=== PATIENT | male | born 1930 | race Caucasian/White ===

== ENCOUNTER 2016-12-26 11:48 | Inpatient (IN) | payer OTHER ==
[~2016-12-26] VITALS: Ht 170.2 cm; Wt 65.0 kg
[~2016-12-26 11:48] MED LIST: CHOL2000 PO; CIPR250S2 PO; DILT180C9 PO; DUTA0.5C PO; GLYB5TAB3 PO; INSU100C3 SQ; INSU100C5 SQ; LISI10TA2 PO; MTF1000T PO; PIOG30TA19 PO; SITA100T8 PO
[2016-12-26] MEDS ORDERED: SOD CHLORIDE 0.9% 500 ML IV STA (12:06)
[2016-12-26] MEDS ORDERED: ONDANSETRON 4 MG INJ IV ONE (12:30)
[2016-12-26] MEDS ORDERED: morphine 2 MG INJ IV ONE (12:30)
[2016-12-26 12:31] LABS: BASOPHIL # 0.1 10^3/ul (0.0-0.1); BASOPHILS % 0.5 % (0.0-2.0); EOSINOPHILS % 0.3 % (0.0-7.0); HEMATOCRIT 40.3 % (42.0-52.0); HEMOGLOBIN 13.4 g/dl (14.0-18.0); LYMPHOCYTES # 1.3 10^3/ul (0.8-2.9); MEAN CORPUSCULAR HEMOGLOBIN 30.3 pg (29.0-33.0); MEAN CORPUSCULAR HGB CONC 33.3 g/dl (32.0-37.0); MEAN CORPUSCULAR VOLUME 91.2 fl (82.0-101.0); MEAN PLATELET VOLUME 10.3 fl (7.4-10.4); MONOCYTE # 0.7 10^3/ul (0.3-0.9); MONOCYTES % 6.5 % (0.0-11.0); NEUTROPHIL # 8.1 10^3/ul (1.6-7.5); NEUTROPHILS % 79.2 % (39.0-77.0); PLATELET COUNT 156 10^3/UL (140-415); RED BLOOD COUNT 4.42 10^6/ul (4.70-6.10); RED CELL DISTRIBUTION WIDTH 12.7 % (11.5-14.5); WHITE BLOOD COUNT 10.2 10^3/ul (4.8-10.8)
[2016-12-26 12:49] LABS: INR 1.14; PROTIME 14.6 Sec (12.2-14.2); PT RATIO 1.1
[2016-12-26 12:50] LABS: PARTIAL THROMBOPLASTIN TIME 30.6 Sec (25.0-35.0)
[2016-12-26 12:51] LABS: ANION GAP 14 (8-16); BLOOD UREA NITROGEN 30 mg/dl (7-20); CARBON DIOXIDE 28 mmol/L (21-31); CHLORIDE 106 mmol/L (97-110); CREATININE 1.43 mg/dl (0.61-1.24); GLUCOSE 167 mg/dl (70-220); POTASSIUM 4.1 mmol/L (3.5-5.1); SODIUM 144 mmol/L (135-144)
[2016-12-26 13:03] LABS: TROPONIN-I < 0.012 ng/ml (0.00-0.12)
--- NOTE | 2016-12-26 13:09 | ERD ---
ER Documentation Chief Complaint Chief Complaint BIB [facility] FOR GROUND LEVEL FALL C/O LEFT SHOULDER PAIN. HPI This is an 86-year-old male history of mild dementia who presents via EMS for ground-level fall. The patient is describing left shoulder and left knee pain. However, the patient cannot adequately explain how he fell. The patient is otherwise conversive and can localize. He denies any head trauma, no neck pain , no prodrome of chest pain or shortness of breath but again cannot describe the events surrounding the fall. No family available upon arrival. Remainder of HPI is limited. He does describe the shoulder pain is moderate to severe and worse with any movement. ROS All systems reviewed and are negative except as per history of present illness. Medications Home Meds Reported Medications Insulin Glargine,Hum.rec.anlog (Lantus) 100 U/Ml Cartridge, 10 SQ HS 11/15/11 Insulin Aspart (Novolog) 100 U/Ml Cartridge, 6 SQ BID 11/15/11 Ciprofloxacin (Cipro Susp) 250 Mg/5 Ml Zoey.mc.rec, 250 MG PO BID 11/07/11 Glyburide* (Glyburide*) 5 Mg Tablet, 5 MG PO BID 11/07/11 Dutasteride* (Avodart*) 0.5 Mg Capsule, 0.5 MG PO DAILY 11/07/11 Pioglitazone Hcl* (Actos*) 30 Mg Tablet, 30 MG PO DAILY 11/07/11 Metformin* (Glucophage*) 1,000 Mg Tablet, 1000 MG PO BID 11/07/11 Cholecalciferol* (Vitamin D3*) 2,000 Unit Cap, 2000 UNIT PO DAILY 11/07/11 Sitagliptin* (Januvia*) 100 Mg Tablet, 100 MG PO DAILY 11/07/11 Lisinopril* (Lisinopril*) 10 Mg Tablet, 10 MG PO DAILY 11/07/11 Diltiazem Hcl (Diltiazem Er) 180 Mg Capsule.cr, 180 MG PO DAILY 11/07/11 Allergies Allergies: Coded Allergies: No Known Drug Allergy (Verified Allergy, Unknown, 11/17/11) PMhx/Soc History of Surgery: Yes (PACEMAKER INSERTION) Anesthesia Reaction: No Hx Neurological Disorder: Yes (DEMENTIA) Hx Respiratory Disorders: No Hx Cardiac Disorders: Yes (HTN) Hx Psychiatric Problems: No Hx Miscellaneous Medical Probl: Yes (B LE ULCERS,PAD,DM,ARTERIAL HTN,VIT. D DEFICIENT,BPH,HIATAL HERNIA) Hx Alcohol Use: No Hx Substance Use: No Hx Tobacco Use: No FmHx Family History: No diabetes Physical Exam Vitals Vital Signs Date Time Temp Pulse Resp B/P Pulse Ox O2 Delivery O2 Flow Rate FiO2 12/26/16 12:34 66 17 170/80 94 Nasal Cannula 2.0 12/26/16 11:52 98.3 58 16 179/84 99 Physical Exam Airway is intact Bilateral breath sounds Strong distal pulses No obvious deficits General: Well developed, well nourished, no acute distress Head: Normocephalic, atraumatic Eyes: Pupils equally reactive, EOM intact ENT: Moist mucous membranes Neck: Supple, no lymphadenopathy, No midline tenderness, deformities, step-offs to the cervical spine, full active and passive range of motion without midline pain. Respiratory: Lungs clear bilaterally, no distress, no chest wall tenderness, no crepitus Cardiovascular: RRR, no murmurs, rubs, or gallops Abdominal: Soft, non-tender, non-distended, no peritoneal signs, pelvis is stable : Deferred MSK: The patient has soft tissue tenderness of the proximal humerus of the left upper extremity with limited range of motion secondary to pain, no tenderness at the elbow or wrist. The patient seems to have baseline dysfunction of the left hand that the patient states is unchanged. Additionally the patient has a small contusion noted to the left knee with full active and passive range of motion. The patient seems to have some discomfort with internal and external rotation of the left lower extremity. Otherwise 2+ dorsalis pedis and posterior tibial pulses., no midline tenderness deformities or step-offs to the thoracolumbar spine Neurologic: Alert and oriented, moving all extremities, normal speech, no focal weakness, no cerebellar signs Skin: No ecchymoses or bruising to the chest or abdomen Psych: Normal mood Result Diagram: 12/26/16 1224 12/26/16 1224 Results 24 hrs Laboratory Tests Test 12/26/16 12:24 White Blood Count 10.210^3/ul Red Blood Count 4.4210^6/ul Hemoglobin 13.4g/dl Hematocrit 40.3% Mean Corpuscular Volume 91.2fl Mean Corpuscular Hemoglobin 30.3pg Mean Corpuscular Hemoglobin Concent 33.3g/dl Red Cell Distribution Width 12.7% Platelet Count 50036^3/UL Mean Platelet Volume 10.3fl Neutrophils % 79.2% Lymphocytes % 13.0% Monocytes % 6.5% Eosinophils % 0.3% Basophils % 0.5% Nucleated Red Blood Cells % 0.0/100WBC Neutrophils # 8.110^3/ul Lymphocytes # 1.310^3/ul Monocytes # 0.710^3/ul Eosinophils # 0.010^3/ul Basophils # 0.110^3/ul Nucleated Red Blood Cells # 0.010^3/ul Prothrombin Time 14.6Sec Prothrombin Time Ratio 1.1 INR International Normalized Ratio 1.14 Activated Partial Thromboplast Time 30.6Sec Sodium Level 144mmol/L Potassium Level 4.1mmol/L Chloride Level 106mmol/L Carbon Dioxide Level 28mmol/L Anion Gap 14 Blood Urea Nitrogen 30mg/dl Creatinine 1.43mg/dl Glucose Level 167mg/dl Calcium Level 9.0mg/dl Troponin I < 0.012ng/ml Current Medications Medications (Trade) Dose Ordered Sig/Cata Route PRN Reason Start Time Stop Time Status Last Admin Dose Admin Sodium Chloride (NS) 500 ml @ 500 mls/hr Q1H STAT IV 12/26/16 12:06 12/26/16 13:05 DC 12/26/16 12:27 Morphine Sulfate (morphine) 2 mg ONCE ONCE IV 12/26/16 12:30 12/26/16 12:31 DC 12/26/16 12:27 Ondansetron HCl (Zofran Inj) 4 mg ONCE ONCE IV 12/26/16 12:30 12/26/16 12:31 DC 12/26/16 12:35 Ondansetron HCl (Zofran Inj) 4 mg ER BRIDGE PRN IV NAUSEA AND/OR VOMITING 12/26/16 14:00 12/27/16 13:59 Acetaminophen (Tylenol Tab) 650 mg ER BRIDGE PRN PO MILD PAIN/FEVER 12/26/16 14:00 12/27/16 13:59 Procedures/MDM EKG, MONITORS, & DIAGNOSTIC IMAGING: EKG: I reviewed and interpreted a 12-lead EKG. Rhythm: Normal sinus rhythm Ectopy: None Intervals: No abnormalities ST segments: No elevations or depressions T waves: No contiguous inversions Chest x-ray: I reviewed and interpreted a 1 view of the chest Mediastinum: No enlargement Cardiac silhouette: No cardiomegaly Airspace: Clear lung contreras bilaterally without evidence of pneumothorax Bones: No evidence of fracture X-ray pelvis: I reviewed and interpreted 1 view of the pelvis, there is no evidence of an acetabular fracture without any other evidence of acute fracture dislocation or subluxations X-ray left hip: I reviewed and interpreted multiple views of the x-ray Bones: Left acetabular fracture as described above Soft tissue: No evidence of foreign body X-ray left knee: I reviewed and interpreted multiple views of the x-ray Bones: No evidence of acute fracture dislocation or subluxation Soft tissue: No evidence of foreign body CT brain: Indication for advanced imaging: Elderly male with syncopal episode versus fall , cannot rule out intracranial hemorrhage. Summary of radiologist interpretation: IMPRESSION: 1. No evidence of acute intracranial pathology. 2. Severe generalized cerebral volume loss. 3. Advanced periventricular and subcortical white matter hypodensities are nonspecific but likely reflect chronic microvascular ischemic change. CT pelvis: Indication for advanced imaging: Better evaluation of potential left acetabular fracture Summary of radiologist interpretation: Pending report at this time Procedure: Splint Application Note: Splint type: Left upper extremity sling Extremity: Upper extremity Indication: Proximal humerus fracture The patient was consented at bedside prior to splint application and states understanding of risks, benefits, and alternatives. The patient was neurovascularly intact prior to and status post application of the splint. The patient tolerated the procedure well and there were no complications. LAB INTERPRETATION: Mild renal insufficiency MEDICAL DECISION MAKING: This is an elderly male with mild dementia who cannot describe the events around his fall versus syncope. A workup was initiated directed at diagnosis of potential syncopal episode. The patient is unsure if he hit his head but default imaging of CT of the brain would be appropriate. The patient can localize otherwise. The patient does not meet high-risk criteria and based on NEXUS cervical spine criteria there is no indication for cervical spine imaging at this time. The patient is having tenderness to the left shoulder and left knee. Concern for proximal humerus fracture, left knee contusion. The patient also has some pain with internal and external rotation of the hip, concern for possible hip fracture. Imaging directed at these structures. ER COURSE: Pain medicine provided. The patient remains hemodynamically stable. His family was updated on diagnosis of proximal humerus fracture and left acetabular fracture. The orthopedic surgeon product safety consultant was notified. The patient's pain is well controlled. Patient given gentle fluids. I kept the patient and/or family informed of laboratory and diagnostic imaging results throughout the emergency room course. DISPOSITION PLAN: Telemetry admission to rule out syncope CONSULTATION: Accepting care team and consultations: I discussed the current laboratory data, diagnostic imaging and emergency care provided. Admitting team: Dr. Whitt Admitting team indication: Insurance directed Consulting services: Orthopedic surgeon Dr. Shasta Elias Diagnosis: Primary Impression: Syncope Syncope type: unspecified Qualified Code: R55 - Syncope, unspecified syncope type Additional Impressions: Closed fracture of left proximal humerus Encounter type: initial encounter Fracture morphology: unspecified fracture morphology Qualified Code: S42.202A - Closed fracture of proximal end of left humerus, unspecified fracture morphology, initial encounter Closed left acetabular fracture Encounter type: initial encounter Sublocation of acetabulum: unspecified portion of acetabulum Fracture alignment: displaced Qualified Code: S32.402A - Closed displaced fracture of left acetabulum, unspecified portion of acetabulum, initial encounter Acute renal insufficiency Condition: Stable LAUREN HAHN MD Dec 26, 2016 13:09
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
--- NOTE | 2016-12-26 13:10 | RADRPT ---
PROCEDURE: XR Left Shoulder. CLINICAL INDICATION: Left shoulder pain. TECHNIQUE: Three views. Frontal internal rotation, frontal external rotation, and scapular Y-view . COMPARISON: No prior study is available for comparison. FINDINGS: There is a possible acute mildly displaced fracture through the surgical neck and greater tuberosity of the left humerus. There is no other fracture. There is no dislocation. The soft tissues are normal. Articular surfaces are intact. There is no lytic or blastic lesion. A permanent pacemaker is noted. IMPRESSION: 1. Possible fracture through the proximal left humerus. Correlation with CT scan advised. 2. Permanent pacemaker. RPTAT: QQ .Sai Okeefe MD, MD Date Time Electronically viewed and signed by .Sai Okeefe MD, on 12/26/2016 13:10 .R/
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
[2016-12-26] MEDS ORDERED: ONDANSETRON 4 MG INJ IV PRN (14:00)
[2016-12-26] MEDS ORDERED: ACETAMINOPHEN 325 MG TAB PO PRN ×2 (14:00→15:00)
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
--- NOTE | 2016-12-26 14:28 | RADRPT ---
PROCEDURE: CT pelvis without contrast. CLINICAL INDICATION: Acetabular fracture TECHNIQUE: CT scan of the pelvis without contrast was performed. The patient was scanned without intravenous contrast. Coronal and sagittal reformatted images were obtained from the axial source i mages. Use of iterative reconstruction technique was employed. Images were reviewed on a high-resolu tion PACS workstation. images. The calculated radiation dose measures 324.[address] DI measures 9.65 mGy. One or more of the following dose reduction techniques were used: - Automated exposure control. - Adjustment of the mA and/or kV according to patient size . - Use of iterative reconstruction technique. Images were reviewed on a high-resolution PACS workstation COMPARISON: None. FINDINGS: CT pelvis: Osseous structures: There is a comminuted and minimally displaced fracture involving the left anterior hong and acetabu lar columns there is also a mildly displaced fracture of the posterior wall and posterior column. Th ere is involvement of the medial acetabular wall as well and articular surface involvement. Displace ment is minimal. There are additional fractures involving the left anterior pubic ramus which is com minuted minimally displaced there is also fracture of the takeoff of the left superior pubic ramus n ear the acetabulum. The right hip joint is grossly preserved. No additional fractures are identified . Left proximal femur is maintained as well. Mild to moderate bilateral hip arthrosis is present. Soft tissues: There is a fat containing left inguinal hernia. Atherosclerotic vascular calcifications are present. Multiple densities are seen within the left kid catarina which appears mildly atrophic. There may be vascular, although partially assessed. The small bowel loops situated within the pelvis are unremarkable. The pelvic organs are normal. T he pelvic sidewalls and inguinal regions are clear. The sigmoid colon and rectum are remarkable for sigmoid diverticulosis. No mass, lymphadenopathy, or free fluid is seen. Calcific densities seen w ithin the descending colon and No acute inflammation is seen. The surrounding osseous structures are remarkable for degenerative spondylosis of the spine. No ost eolytic or osteoblastic lesion is detected. IMPRESSION: 1. Comminuted, nondisplaced fractures involving the left anterior, posterior and medial hong, as we ll as, the anterior and posterior columns. 2. No evidence for a left proximal femoral fracture. 3. Comminuted, nondisplaced fractures of the left superior and inferior pubic rami. 3. Atherosclerotic vascular calcifications. 4. Decreased bone mineral density. RPTAT: UU .Ben Charles MD, MD Date Time Electronically viewed and signed by .Ben Charles MD, MD on 12/26/2016 14:28 .d/
[2016-12-26] MEDS: SOD CHLORIDE 0.9% 1,000 ML IV SCH (14:39)
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
[2016-12-26] MEDS ORDERED: GLUCOSE GEL 15 GRAM TUBE PO PRN ×2 (15:00)
[2016-12-26] MEDS ORDERED: hydrALAzine 20 MG INJ IV PRN (15:00)
[2016-12-26] MEDS ORDERED: DEXTROSE 50% 50 ML SYRINGE IV PRN ×2 (15:00)
[2016-12-26] MEDS ORDERED: DOCUSATE SODIUM 100 MG CAP PO PRN (15:00)
[2016-12-26] MEDS ORDERED: GLUCAGON 1 MG INJ IM PRN (15:00)
[2016-12-26] MEDS ORDERED: NACL 0.9% 3 ML SYG IV SCH (15:00)
[2016-12-26] MEDS ORDERED: GLUCOSE GEL 15 GRAM TUBE BUCCAL PRN (15:00)
[2016-12-26] MEDS: INSULIN ASPART [NOVOLOG] 3 ML PEN SC SCH ×2 (18:54→21:00)
[2016-12-26] MEDS: FAMOTIDINE 20 MG TAB PO SCH (18:54)
[2016-12-26] MEDS: morphine 2 MG INJ IV PRN (18:55)
[2016-12-26] MEDS: ONDANSETRON 4 MG INJ IV PRN (18:55)
[2016-12-26 18:56] VITALS: PULSE 73
[2016-12-26 19:00] VITALS: Ht 170.2 cm; Wt 65.0 kg
[2016-12-26 19:08] VITALS: BP 159/74; PULSE 65; RESP 17
[2016-12-26 20:14] VITALS: PULSE 66
[2016-12-26 20:33] VITALS: BP 153/71; RESP 19
[2016-12-26] MEDS: INSULIN GLARGINE [LANtus] 3 ML PEN SC SCH (21:24)
[2016-12-26] MEDS: HEPARIN 5,000 UNIT/0.5 ML VIAL SC SCH (21:24)
[2016-12-27] VITALS (11 sets, daily range): BP systolic 115–135; BP diastolic 59–71; PULSE 60–74; RESP 15–18
[2016-12-27] MEDS: ACCU-CHEK XX SCH (02:00)
[2016-12-27] MEDS: SOD CHLORIDE 0.9% 1,000 ML IV SCH ×2 (03:59→13:07)
[2016-12-27] MEDS: HEPARIN 5,000 UNIT/0.5 ML VIAL SC SCH ×3 (05:20→22:08)
[2016-12-27 07:39] LABS: BASOPHILS % 0.5 % (0.0-2.0); EOSINOPHILS # 0.3 10^3/ul (0.0-0.5); EOSINOPHILS % 3.9 % (0.0-7.0); HEMATOCRIT 36.8 % (42.0-52.0); HEMOGLOBIN 11.8 g/dl (14.0-18.0); LYMPHOCYTES # 1.5 10^3/ul (0.8-2.9); LYMPHOCYTES % 20.6 % (15.0-51.0); MEAN CORPUSCULAR HEMOGLOBIN 29.9 pg (29.0-33.0); MEAN CORPUSCULAR HGB CONC 32.1 g/dl (32.0-37.0); MEAN CORPUSCULAR VOLUME 93.2 fl (82.0-101.0); MEAN PLATELET VOLUME 10.6 fl (7.4-10.4); MONOCYTE # 0.4 10^3/ul (0.3-0.9); MONOCYTES % 5.9 % (0.0-11.0); NEUTROPHIL # 5.1 10^3/ul (1.6-7.5); NEUTROPHILS % 68.7 % (39.0-77.0); PLATELET COUNT 145 10^3/UL (140-415); RED BLOOD COUNT 3.95 10^6/ul (4.70-6.10); WHITE BLOOD COUNT 7.5 10^3/ul (4.8-10.8)
[2016-12-27 07:58] LABS: CALCIUM 8.5 mg/dl (8.4-10.2); CREATININE 1.42 mg/dl (0.61-1.24); MAGNESIUM 1.8 mg/dl (1.7-2.5); POTASSIUM 4.4 mmol/L (3.5-5.1)
[2016-12-27] MEDS: INSULIN ASPART [NOVOLOG] 3 ML PEN SC SCH ×4 (08:00→22:07)
[2016-12-27] MEDS: CHOLECALCIFEROL 2,000 UNIT CAP PO SCH (09:17)
[2016-12-27] MEDS: FAMOTIDINE 20 MG TAB PO SCH (09:17)
[2016-12-27] MEDS: DILTIAZEM (CD) 180 MG CAP PO SCH (09:17)
[2016-12-27] MEDS: DUTASTERIDE 0.5 MG CAP PO SCH (09:17)
[2016-12-27] MEDS: morphine 2 MG INJ IV PRN (13:06)
[2016-12-27] MEDS: ONDANSETRON 4 MG INJ IV PRN (13:07)
--- NOTE | 2016-12-27 16:18 | PN ---
Date/Time of Note Date/Time of Note DATE: 12/27/16 TIME: 16:14 Assessment/Plan VTE Prophylaxis VTE Prophylaxis Intervention: heparin Lines/Catheters IV Catheter Type (from Nrs): Saline Lock Urinary Cath still in place: No Assessment/Plan Chief Complaint/Hosp Course 1. Acute left hip fracture s/p mechanical fall - CT scan of pelvis showed "comminuted and minimally displaced fracture involving the left anterior hong and acetabular columns there is also a mildly displaced fracture of the posterior wall and posterior column. There is involvement of the medial acetabular wall as well and articular surface involvement. Displacement is minimal. There are additional fractures involving the left anterior pubic ramus which is comminuted minimally displaced there is also fracture of the takeoff of the left superior pubic ramus near the acetabulum." - Ortho, Dr. Vegas, consulted from ED - Will await further recommendations from Ortho - will put on bedrest for now - Pain control 2. DM - hold hold PO medications - A1c ordered - ISS and accuchecks 3. h/o CVA with residual weakness - Once cleared by Ortho, will get PT/OT 4. GABBI vs GABBI on CKD - will hydrate and monitor renal function - If worsens, will consider Nephrology consultation - IVF 5. Left humeral fracture - Left arm in sling - Ortho on board 6. HTN - continue home medications - Hold lisinopril for now due to Cr 7. BPH - hold home medications 8. Diet - Carb control 9. GI ppx - Pepcid 10. DVT ppx - Heparin 11. Code status - DNR/DNI 12. Disposition -still pending ortho recs Problems: Subjective 24 Hr Interval Summary Free Text/Dictation patient has dementia, but does respond in greek Exam/Review of Systems Vital Signs Vitals Vital Signs Date Time Temp Pulse Resp B/P Pulse Ox O2 Delivery O2 Flow Rate FiO2 12/27/16 16:12 99.3 66 17 115/59 95 12/27/16 08:30 Nasal Cannula 2.0 Intake and Output 12/26/16 12/26/16 12/27/16 15:00 23:00 07:00 Intake Total 900 ml Balance 900 ml Exam Physical exam General: Patient is laying in bed and answers questions Mentation: Patient is alert and oriented to self Head: Normocephalic atraumatic Eyes: EOMI, pupils reactive to light Neck: Supple, nontender, midline Respiratory: Clear to auscultation bilaterally Cardiovascular: regular rate, no obvious murmurs Gastrointestinal: non-tender to palpation, bowel sounds heard. Neurological: Moves all extremities spontaneously, but limited to no movement in L side given pain. Results Result Diagram: 12/27/16 0611 12/27/16 0610 Results 24 hrs Laboratory Tests Test 12/26/16 18:37 12/26/16 21:12 12/27/16 06:10 12/27/16 06:11 Bedside Glucose 146 171 Sodium Level 144 Potassium Level 4.4 Chloride Level 107 Carbon Dioxide Level 31 Anion Gap 10 Blood Urea Nitrogen 23 H Creatinine 1.42 H Glucose Level 112 # Hemoglobin A1c 6.4 H Calcium Level 8.5 Magnesium Level 1.8 White Blood Count 7.5 # Red Blood Count 3.95 L Hemoglobin 11.8 L Hematocrit 36.8 L Mean Corpuscular Volume 93.2 Mean Corpuscular Hemoglobin 29.9 Mean Corpuscular Hemoglobin Concent 32.1 Red Cell Distribution Width 13.0 Platelet Count 145 Mean Platelet Volume 10.6 H Neutrophils % 68.7 Lymphocytes % 20.6 Monocytes % 5.9 Eosinophils % 3.9 Basophils % 0.5 Nucleated Red Blood Cells % 0.0 Neutrophils # 5.1 Lymphocytes # 1.5 Monocytes # 0.4 Eosinophils # 0.3 Basophils # 0.0 Nucleated Red Blood Cells # 0.0 Test 12/27/16 07:58 12/27/16 11:52 Bedside Glucose 112 142 Medications Medications Current Medications Cholecalciferol (Vitamin D) 2,000 unit DAILY PO Last administered on 12/27/16 09:17; Admin Dose 2,000 UNIT; Start 12/27/16 at 09:00 Diltiazem HCl (Cardizem Cd) 180 mg DAILY PO Last administered on 12/27/16 09: 17; Admin Dose 180 MG; Start 12/27/16 at 09:00 Dutasteride (Avodart) 0.5 mg DAILY PO Last administered on 12/27/16 09:17; Admin Dose 0.5 MG; Start 12/27/16 at 09:00 Insulin Glargine (Lantus) 10 unit HS SC Last administered on 12/26/16 21:24; Admin Dose 10 UNIT; Start 12/26/16 at 21:00 Miscellaneous Information 1 ea NOTE XX ; Start 12/26/16 at 15:00 Glucose (Glutose) 15 gm Q15M PRN PO DECREASED GLUCOSE; Start 12/26/16 at 15:00 Glucose (Glutose) 22.5 gm Q15M PRN PO DECREASED GLUCOSE; Start 12/26/16 at 15: 00 Dextrose (D50w Syringe) 25 ml Q15M PRN IV DECREASED GLUCOSE; Start 12/26/16 at 15:00 Dextrose (D50w Syringe) 50 ml Q15M PRN IV DECREASED GLUCOSE; Start 12/26/16 at 15:00 Glucagon (Glucagen) 1 mg Q15M PRN IM DECREASED GLUCOSE; Start 12/26/16 at 15:00 Glucose (Glutose) 15 gm Q15M PRN BUCCAL DECREASED GLUCOSE; Start 12/26/16 at 15 :00 Ondansetron HCl (Zofran Inj) 4 mg Q6H PRN IV NAUSEA AND/OR VOMITING Last administered on 12/27/16 13:07; Admin Dose 4 MG; Start 12/26/16 at 15:00 Acetaminophen (Tylenol Tab) 650 mg Q6H PRN PO PAIN LEVEL 1-3 OR FEVER; Start 12/26/16 at 15:00 Acetaminophen/ Hydrocodone Bitart ([place] (5/325)) 1 tab Q6H PRN PO PAIN LEVEL 4 -6; Start 12/26/16 at 15:00 Morphine Sulfate (morphine) 2 mg Q4H PRN IV PAIN LEVEL 7-10 Last administered on 12/27/16 13:06; Admin Dose 2 MG; Start 12/26/16 at 15:00 Docusate Sodium (Colace) 100 mg Q12H PRN PO CONSTIPATION; Start 12/26/16 at 15: 00 Magnesium Hydroxide (Milk Of Mag) 30 ml DAILY PRN PO CONSTIPATION; Start at 15:00 Famotidine (Pepcid) 20 mg DAILY PO Last administered on 12/27/16 09:17; Admin Dose 20 MG; Start 12/26/16 at 16:00 Heparin Sodium (Porcine) (Heparin (5000 Units/0.5 ml)) 5,000 unit Q8 SC Last administered on 12/27/16 13:08; Admin Dose 5,000 UNIT; Start 12/26/16 at 22:00 Hydralazine HCl (Apresoline) 10 mg Q6H PRN IV SBP >160; Start 12/26/16 at 15:00 Diagnostic Test (Pha) (Accu-Chek) 1 XX ; Start 12/27/16 at 02:00 CHANDRIKA NICHOLAS Dec 27, 2016 16:18
[2016-12-27] MEDS: INSULIN GLARGINE [LANtus] 3 ML PEN SC SCH (22:07)
[2016-12-28] VITALS (13 sets, daily range): BP systolic 120–138; BP diastolic 58–69; PULSE 59–70; RESP 15–20
[2016-12-28] MEDS: ACCU-CHEK XX SCH (02:44)
--- NOTE | 2016-12-28 04:16 | CONS ---
DATE OF ADMISSION: 12/26/2016 DATE OF CONSULTATION: 12/27/2016 HISTORY OF PRESENT ILLNESS: The patient is an 86-year-old male, who was admitted on December 26, 2016, when he was brought into the emergency room complaining of pain involving the left hip and left shoulder. He obviously had a ground level 4, which was not actually witnessed. He is usually ambulatory with a walker. However, 1 day after the fall, he was not able to carry out his usual ambulatory activities and he was complaining of increasing pain over the left hip and he was brought in. He has multiple medical problem including diabetes mellitus, dementia, history of CVA with residual left-sided weakness, history of congestive heart failure, and coronary heart disease with a pacemaker in. PHYSICAL EXAMINATION: GENERAL APPEARANCE: My examination revealed an 86-year-old male, who could not participate in the history taking and physical examination. EXTREMITIES: There was a mild swelling around the left shoulder with painful limit of motion. There seems to be weakness in the left-sided extremities. However, there were no signs of any other injuries than the painful swelling of the left shoulder. He was holding his left hip somewhat externally rotated and flexed and any attempted range of motion of the left hip was provoking considerable pain. There was no major neurovascular compromise of the then the weakness and painful limit of motion. IMAGING STUDIES: X-rays and CT scan of the pelvis were reviewed, and it revealed a presence of a pelvic fracture involving the left acetabulum and left superior-inferior pubic rami. Fractures were all within acceptable limits. The x-rays of the left shoulder revealed deformities involving humeral head, which probably is preexisting. However, there is a finding suggestive of possible surgical neck fracture of the left humerus, which is not displaced. DIAGNOSTIC IMPRESSION: 1. Pelvic fracture involving the left acetabulum and left superior and inferior pubic rami, in acceptable alignment. 2. Possible fracture of the surgical neck of the left humerus. RECOMMENDATIONS FOR MANAGEMENT: The treatment recommended is conservative and nonsurgical: 1. The left shoulder injury can be treated with immobilization in a sling for 4-5 weeks, followed by gradual mobilization. 2. For the treatment of pelvic fracture including left acetabulum and left pubic rami, the patient should be in bedrest with absolutely no weightbearing on the left lower extremity for 4-6 weeks by following the gradual mobilization. This patient probably needs to be placed in a custodial facility for bedrest and absolute no weightbearing on the left lower extremity for about 6 weeks. After the alf placement, he should be seen as an outpatient in the ortho office in 2 weeks with repeated x-rays of the shoulder and pelvis. Dictated By: In Lisa Vegas MD /ministerio/dunia /Document#: [id number]
[2016-12-28] MEDS: HEPARIN 5,000 UNIT/0.5 ML VIAL SC SCH ×3 (06:00→23:00)
[2016-12-28] MEDS: INSULIN ASPART [NOVOLOG] 3 ML PEN SC SCH ×4 (08:00→21:00)
[2016-12-28 08:53] LABS: BASOPHILS % 0.5 % (0.0-2.0); EOSINOPHILS # 0.4 10^3/ul (0.0-0.5); EOSINOPHILS % 4.7 % (0.0-7.0); HEMATOCRIT 36.2 % (42.0-52.0); HEMOGLOBIN 11.4 g/dl (14.0-18.0); LYMPHOCYTES # 1.4 10^3/ul (0.8-2.9); LYMPHOCYTES % 16.9 % (15.0-51.0); MEAN CORPUSCULAR HEMOGLOBIN 29.3 pg (29.0-33.0); MEAN CORPUSCULAR HGB CONC 31.5 g/dl (32.0-37.0); MEAN CORPUSCULAR VOLUME 93.1 fl (82.0-101.0); MEAN PLATELET VOLUME 10.4 fl (7.4-10.4); MONOCYTE # 0.7 10^3/ul (0.3-0.9); MONOCYTES % 8.9 % (0.0-11.0); NEUTROPHIL # 5.6 10^3/ul (1.6-7.5); NEUTROPHILS % 68.8 % (39.0-77.0); PLATELET COUNT 131 10^3/UL (140-415); RED BLOOD COUNT 3.89 10^6/ul (4.70-6.10); RED CELL DISTRIBUTION WIDTH 13.1 % (11.5-14.5); WHITE BLOOD COUNT 8.1 10^3/ul (4.8-10.8)
[2016-12-28] MEDS: DILTIAZEM (CD) 180 MG CAP PO SCH (09:23)
[2016-12-28] MEDS: FAMOTIDINE 20 MG TAB PO SCH (09:23)
[2016-12-28] MEDS: DUTASTERIDE 0.5 MG CAP PO SCH (09:23)
[2016-12-28] MEDS: CHOLECALCIFEROL 2,000 UNIT CAP PO SCH (09:23)
[2016-12-28 09:26] LABS: CALCIUM 7.4 mg/dl (8.4-10.2); CREATININE 1.43 mg/dl (0.61-1.24); MAGNESIUM 1.7 mg/dl (1.7-2.5); PHOSPHORUS 3.4 mg/dl (2.5-4.9); POTASSIUM 4.2 mmol/L (3.5-5.1)
[2016-12-28] MEDS ORDERED: POLYETHYLENE GLYCOL 17 GM PACKET PO PRN (10:30)
[2016-12-28] MEDS: BALSAM PERU/CASTOR OIL 60 GM TUBE TOP SCH ×2 (11:00→23:00)
--- NOTE | 2016-12-28 11:01 | RADRPT ---
PROCEDURE: Renal US. CLINICAL INDICATION: Acute kidney injury. TECHNIQUE: Multiple sonographic images of the kidneys and urinary bladder were obtained. The imag es were reviewed on a PACS workstation. COMPARISON: No prior studies are available for comparison. FINDINGS: The right kidney measures 10.7 x 5.5 x 4.4 cm. The left kidney measures 9.7 x 3.8 x 3.6 cm. There is no renal mass. There is mild bilateral hydronephrosis. There are multiple bilateral renal calculi with the largest on the right measuring 0.6 cm and the la rgest on the left measuring 1.1 cm. There is thinning of the renal parenchyma bilaterally and both kidneys are hyperechoic consistent wi th medical renal disease. The perirenal regions are normal with no fluid collection or mass. The urinary bladder is unremarkable. IMPRESSION: 1. Mild bilateral hydronephrosis. 2. Multiple bilateral renal calculi. Correlation with noncontrast CT scan of the abdomen and pelvis advised. 3. Bilateral hyperechoic kidneys with thinning of renal parenchyma bilaterally consistent with medi raj renal disease. 4. Otherwise unremarkable study. RPTAT: QQ .Sai Okeefe MD, Date Time Electronically viewed and signed by .Sai Okeefe MD, on 12/28/2016 11:01 .R/
[2016-12-28] MEDS: morphine 2 MG INJ IV PRN (12:46)
[2016-12-28] MEDS: ONDANSETRON 4 MG INJ IV PRN (12:47)
--- NOTE | 2016-12-28 15:20 | PN ---
Date/Time of Note Date/Time of Note DATE: 12/28/16 TIME: 15:18 Assessment/Plan VTE Prophylaxis VTE Prophylaxis Intervention: heparin Lines/Catheters IV Catheter Type (from Nrs): Saline Lock Urinary Cath still in place: No Assessment/Plan Chief Complaint/Hosp Course 1. Acute left hip fracture s/p mechanical fall - CT scan of pelvis showed "comminuted and minimally displaced fracture involving the left anterior hong and acetabular columns there is also a mildly displaced fracture of the posterior wall and posterior column. There is involvement of the medial acetabular wall as well and articular surface involvement. Displacement is minimal. There are additional fractures involving the left anterior pubic ramus which is comminuted minimally displaced there is also fracture of the takeoff of the left superior pubic ramus near the acetabulum." - Ortho, Dr. Vegas, consulted from ED - Will await further recommendations from Ortho, stated will need bedrest, but possible special traction on LE? will await callback from nursing - will put on bedrest - Pain control 2. DM - hold PO medications - A1c ordered - ISS and accuchecks 3. h/o CVA with residual weakness - will need bedrest for fractures 4. GABBI vs GABBI on CKD - nephrology consulted - US renal showing stones, repeat ct ab/pelvis ordered - pending recs - IV hydration 5. Left humeral fracture - Left arm in sling - Ortho on board 6. HTN - continue home medications - Hold lisinopril for now due to Cr 7. BPH - hold home medications 8. Diet - Carb control 9. GI ppx - Pepcid 10. DVT ppx - Heparin 11. Code status - DNR/DNI 12. Disposition -nephro recs and final ortho recs before likely DC to SNF Problems: Subjective 24 Hr Interval Summary Free Text/Dictation no acute issues, responds and moves to command, has dementia Exam/Review of Systems Vital Signs Vitals Vital Signs Date Time Temp Pulse Resp B/P Pulse Ox O2 Delivery O2 Flow Rate FiO2 12/28/16 12:25 69 12/28/16 11:58 98.6 17 126/65 97 12/28/16 08:30 Nasal Cannula 2.0 Intake and Output 12/27/16 12/27/16 12/28/16 15:00 23:00 07:00 Intake Total 1240 ml Balance 1240 ml Exam Physical exam General: Patient is laying in bed and answers questions Mentation: Patient is alert and oriented to self Head: Normocephalic atraumatic Eyes: EOMI, pupils reactive to light Neck: Supple, nontender, midline Respiratory: Clear to auscultation bilaterally Cardiovascular: regular rate, no obvious murmurs Gastrointestinal: non-tender to palpation, bowel sounds heard. Neurological: Moves all extremities spontaneously, but limited to no movement in L side given pain. Results Result Diagram: 12/28/16 0741 12/28/16 0741 Results 24 hrs Laboratory Tests Test 12/27/16 17:18 12/27/16 21:55 12/28/16 02:39 12/28/16 07:41 Bedside Glucose 139 183 190 White Blood Count 8.1 Red Blood Count 3.89 L Hemoglobin 11.4 L Hematocrit 36.2 L Mean Corpuscular Volume 93.1 Mean Corpuscular Hemoglobin 29.3 Mean Corpuscular Hemoglobin Concent 31.5 L Red Cell Distribution Width 13.1 Platelet Count 131 L Mean Platelet Volume 10.4 Neutrophils % 68.8 Lymphocytes % 16.9 Monocytes % 8.9 Eosinophils % 4.7 Basophils % 0.5 Nucleated Red Blood Cells % 0.0 Neutrophils # 5.6 Lymphocytes # 1.4 Monocytes # 0.7 Eosinophils # 0.4 Basophils # 0.0 Nucleated Red Blood Cells # 0.0 Sodium Level 142 Potassium Level 4.2 Chloride Level 106 Carbon Dioxide Level 25 Anion Gap 15 Blood Urea Nitrogen 27 H Creatinine 1.43 H Glucose Level 119 Calcium Level 7.4 L Phosphorus Level 3.4 Magnesium Level 1.7 Test 12/28/16 07:51 12/28/16 12:17 Bedside Glucose 116 178 Medications Medications Current Medications Cholecalciferol (Vitamin D) 2,000 unit DAILY PO Last administered on 12/28/16 09:23; Admin Dose 2,000 UNIT; Start 12/27/16 at 09:00 Diltiazem HCl (Cardizem Cd) 180 mg DAILY PO Last administered on 12/28/16 09: 23; Admin Dose 180 MG; Start 12/27/16 at 09:00 Dutasteride (Avodart) 0.5 mg DAILY PO Last administered on 12/28/16 09:23; Admin Dose 0.5 MG; Start 12/27/16 at 09:00 Insulin Glargine (Lantus) 10 unit HS SC Last administered on 12/27/16 22:07; Admin Dose 10 UNIT; Start 12/26/16 at 21:00 Miscellaneous Information 1 ea NOTE XX ; Start 12/26/16 at 15:00 Glucose (Glutose) 15 gm Q15M PRN PO DECREASED GLUCOSE; Start 12/26/16 at 15:00 Glucose (Glutose) 22.5 gm Q15M PRN PO DECREASED GLUCOSE; Start 12/26/16 at 15: 00 Dextrose (D50w Syringe) 25 ml Q15M PRN IV DECREASED GLUCOSE; Start 12/26/16 at 15:00 Dextrose (D50w Syringe) 50 ml Q15M PRN IV DECREASED GLUCOSE; Start 12/26/16 at 15:00 Glucagon (Glucagen) 1 mg Q15M PRN IM DECREASED GLUCOSE; Start 12/26/16 at 15:00 Glucose (Glutose) 15 gm Q15M PRN BUCCAL DECREASED GLUCOSE; Start 12/26/16 at 15 :00 Ondansetron HCl (Zofran Inj) 4 mg Q6H PRN IV NAUSEA AND/OR VOMITING Last administered on 12/28/16 12:47; Admin Dose 4 MG; Start 12/26/16 at 15:00 Acetaminophen (Tylenol Tab) 650 mg Q6H PRN PO PAIN LEVEL 1-3 OR FEVER; Start 12/26/16 at 15:00 Acetaminophen/ Hydrocodone Bitart ([place] (5/325)) 1 tab Q6H PRN PO PAIN LEVEL 4 -6; Start 12/26/16 at 15:00 Morphine Sulfate (morphine) 2 mg Q4H PRN IV PAIN LEVEL 7-10 Last administered on 12/28/16 12:46; Admin Dose 2 MG; Start 12/26/16 at 15:00 Docusate Sodium (Colace) 100 mg Q12H PRN PO CONSTIPATION; Start 12/26/16 at 15: 00 Magnesium Hydroxide (Milk Of Mag) 30 ml DAILY PRN PO CONSTIPATION; Start at 15:00 Famotidine (Pepcid) 20 mg DAILY PO Last administered on 12/28/16 09:23; Admin Dose 20 MG; Start 12/26/16 at 16:00 Heparin Sodium (Porcine) (Heparin (5000 Units/0.5 ml)) 5,000 unit Q8 SC Last administered on 12/28/16 06:00; Admin Dose 5,000 UNIT; Start 12/26/16 at 22:00 Hydralazine HCl (Apresoline) 10 mg Q6H PRN IV SBP >160; Start 12/26/16 at 15:00 Diagnostic Test (Pha) (Accu-Chek) 1 ea 02 XX Last administered on 12/28/16 02: 44; Admin Dose 1 EA; Start 12/27/16 at 02:00 Polyethylene Glycol (Miralax) 17 gm DAILY PRN PO CONSTIPATION; Start 12/28/16 at 10:30 CHANDRIKA NICHOLAS Dec 28, 2016 15:20
[2016-12-28] MEDS: SOD CHLORIDE 0.9% 1,000 ML IV SCH (15:28)
[2016-12-28 16:37] LABS: ADD UMIC YES; UR ASCORBIC ACID NEGATIVE (NEGATIVE); UR BACTERIA MODERATE /HPF (NONE SEEN); UR BILIRUBIN (Dip) NEGATIVE (NEGATIVE); UR BLOOD (Dip) 3+ mg/dL (NEGATIVE); UR CLARITY CLOUDY (CLEAR); UR COLOR YELLOW (YELLOW); UR GLUCOSE (Dip) NEGATIVE (NEGATIVE); UR KETONES (Dip) NEGATIVE (NEGATIVE); UR LEUKOCYTE ESTERASE (Dip) 3+ Leu/ul (NEGATIVE); UR NITRITE (Dip) NEGATIVE (NEGATIVE); UR RBC 30 /HPF (0-5); UR SPECIFIC GRAVITY (Dip) 1.011 (1.003-1.030); UR TOTAL PROTEIN (Dip) 1+ mg/dl (NEGATIVE); UR UROBILINOGEN (Dip) NEGATIVE (NEGATIVE)
--- NOTE | 2016-12-28 20:31 | CONS ---
DATE OF ADMISSION: 12/26/2016 DATE OF CONSULTATION: 12/28/2016 TYPE OF CONSULTATION: Nephrology. REASON FOR CONSULTATION: Acute kidney injury. PHYSICIAN REQUESTING CONSULT: Dr. Ko HISTORY OF PRESENT ILLNESS: This is an 86-year-old white male with a past medical history of diabet es, hypertension, BPH, history of dementia, history of CVA with left-sided weakness, history of arrh ythmia who presented to [facility] Emergency Room after a mechanical fall. The paulo guajardo apparently went to grab his walker and loss his balance. The patient as a result was brought into the emergency room. Upon arrival, the patient had a CT scan of the pelvis which showed minimal ly displaced fracture of the left anterior wall of the acetabular and minimally displaced fracture o f the posterior wall. The patient was subsequently transferred to telemetry for further evaluation. In terms of the patient's renal history, the patient's previous baseline creatinines were noted to b e around 1.10 mg/dL on admission, the patient noted to have a creatinine of 1.43 mg/dL. The patient is on FLORA inhibitor in outpatient setting. There have been no reports of hemoptysis, hematemesis o r hematochezia. PAST MEDICAL HISTORY: As stated above, history of diabetes, CVA, hypertension, BPH. PAST SURGICAL HISTORY: Patient had pacemaker placement. ALLERGIES: NO KNOWN DRUG ALLERGIES. FAMILY HISTORY: Noncontributory. SOCIAL HISTORY: Does not drink, smoke or do drugs. MEDICATIONS: The patient's medication reviewed. REVIEW OF SYSTEMS: A 14-point review of systems was conducted. Pertinent positives in HPI, otherwi se negative. PHYSICAL EXAMINATION: VITAL SIGNS: Blood pressure is 150/60, respirations 16, pulse 60, temperature 98.6. HEENT: Head is normocephalic. Pupils are reactive to light. NECK: Supple. HEART: Regular rate. LUNGS: Show diminished breath sounds at base. ABDOMEN: Soft, nontender to palpation without rebound or guarding. EXTREMITIES: Negative for clubbing, cyanosis, no edema. DERMATOLOGIC: No rashes. MUSCULOSKELETAL: No joint effusions. NEUROLOGIC: The patient has left-sided weakness. LABORATORY DATA: Shows sodium 142, potassium 4.2, BUN 27, creatinine 1.43. White count 8.1, hemogl obin 9.4, hematocrit 36.2, platelet count ____. ASSESSMENT AND PLAN: This is an 86-year-old male who presents with: 1. Nonoliguric acute kidney injury on top of chronic kidney disease with previous baseline creatini ne between 1 to 1.1 subjectively. Etiology of current acute kidney injury is likely secondary to he modynamics and possible FLORA inhibitor effect. Patient's urinalysis does show pyuria greater that 18 2 white blood cells and positive RBCs. There is maybe a connection to UTI with Saini trauma. The p atient has not glomerular proteinuria and FENa greater than 1%. The plan at this point is to contin ue current medical management. Would continue supportive care, continue gentle IV hydration, renall y dose meds, avoid nephrotoxins. Follow up renal ultrasound to rule out obstruction given history o f benign prostatic hypertrophy. I agree with holding FLORA inhibitor in the setting of acute kidney i njury. 2. Anemia. Monitor hemoglobin and hematocrit levels. 3. Mineral bone disorder. Continue to monitor calcium and phosphorus level. 4. Hypertension. Continue current blood pressure regimen, consider discontinuing IV fluids. 5. Acute left hip fracture secondary to mechanical fall. Continue medical management and follow up with orthopedist, Dr. Vegas. 6. Diabetes. Continue Accu-Cheks and insulin sliding scale. 7. History of cerebrovascular accident. Continue medical management. 8. Left humeral fracture. Continue in immobilization Thank you, Dr. Ko, for this interesting consult. It will be a pleasure to follow patient with you throughout the hospital course. Dictated By: DOMINIC MUÑOZ/ANTONI Conf#: [id number] DID#: [id number]
[2016-12-28] MEDS: INSULIN GLARGINE [LANtus] 3 ML PEN SC SCH (23:02)
[2016-12-29] VITALS (12 sets, daily range): BP systolic 118–140; BP diastolic 58–69; PULSE 60–82; RESP 17–19
[2016-12-29] MEDS: ACCU-CHEK XX SCH (02:00)
[2016-12-29] MEDS: HEPARIN 5,000 UNIT/0.5 ML VIAL SC SCH (05:37)
[2016-12-29] MEDS: SOD CHLORIDE 0.9% 1,000 ML IV SCH (05:38)
[2016-12-29] MEDS: INSULIN ASPART [NOVOLOG] 3 ML PEN SC SCH ×4 (08:00→21:00)
[2016-12-29 08:04] LABS: BASOPHIL # 0.1 10^3/ul (0.0-0.1); BASOPHILS % 0.8 % (0.0-2.0); EOSINOPHILS # 0.5 10^3/ul (0.0-0.5); EOSINOPHILS % 6.2 % (0.0-7.0); HEMATOCRIT 34.7 % (42.0-52.0); HEMOGLOBIN 11.1 g/dl (14.0-18.0); LYMPHOCYTES # 1.2 10^3/ul (0.8-2.9); MEAN CORPUSCULAR HEMOGLOBIN 29.5 pg (29.0-33.0); MEAN CORPUSCULAR VOLUME 92.3 fl (82.0-101.0); MEAN PLATELET VOLUME 10.2 fl (7.4-10.4); MONOCYTE # 0.5 10^3/ul (0.3-0.9); MONOCYTES % 6.2 % (0.0-11.0); NEUTROPHILS % 69.4 % (39.0-77.0); PLATELET COUNT 138 10^3/UL (140-415); RED BLOOD COUNT 3.76 10^6/ul (4.70-6.10); RED CELL DISTRIBUTION WIDTH 12.9 % (11.5-14.5); WHITE BLOOD COUNT 7.2 10^3/ul (4.8-10.8)
[2016-12-29 08:15] LABS: CALCIUM 8.1 mg/dl (8.4-10.2); CREATININE 1.32 mg/dl (0.61-1.24); MAGNESIUM 1.7 mg/dl (1.7-2.5); PHOSPHORUS 3.1 mg/dl (2.5-4.9); POTASSIUM 4.2 mmol/L (3.5-5.1)
[2016-12-29] MEDS: DUTASTERIDE 0.5 MG CAP PO SCH (08:45)
[2016-12-29] MEDS: FAMOTIDINE 20 MG TAB PO SCH (08:46)
[2016-12-29] MEDS: CHOLECALCIFEROL 2,000 UNIT CAP PO SCH (08:46)
[2016-12-29] MEDS: DILTIAZEM (CD) 180 MG CAP PO SCH (08:46)
[2016-12-29] MEDS: BALSAM PERU/CASTOR OIL 60 GM TUBE TOP SCH ×2 (08:47→21:49)
--- NOTE | 2016-12-29 08:57 | PN ---
DATE: 12/29/2016 SUBJECTIVE: The patient is stable. No events overnight. No fevers, chills, nausea, vomiting. OBJECTIVE: VITAL SIGNS: Blood pressure is 140/65, respirations 18, pulse 82, temperature 97.9. HEENT: Head is normocephalic. NECK: Supple. HEART: Regular rate. LUNGS: Show diminished breath sounds at base. ABDOMEN: Soft, nontender to palpation. No rebound or guarding. EXTREMITIES: Negative for clubbing, cyanosis, no edema. DERMATOLOGIC: No rashes. MUSCULOSKELETAL: No joint effusions. NEUROLOGIC: No change in exam. MEDICATIONS: The patient's medications have been reviewed. LABORATORY DATA: Shows white count 7.2, hemoglobin 9.1, platelet count 138. Sodium 142, BUN 24, cr eatinine 1.32. IMAGING STUDIES: The patient's renal ultrasound shows small mild bilateral hydronephrosis and bilat eral renal calculi, hypoechoic kidneys consistent with medical renal disease. ASSESSMENT AND PLAN: 1. Nonoliguric acute kidney injury on top of chronic kidney disease with previous baseline creatini ne 1.1 mg/dL. Etiology of acute kidney injury is secondary to hemodynamics, possible FLORA inhibitor effect. Renal function has been stable the last 48 hours. Renal ultrasound shows mild hydronephros is and evidence of increased renal parenchyma consistent with chronic kidney disease. At this point , would continue current treatment plan, supportive care, renally dose all meds. 2. Nephrolithiasis. The patient's renal ultrasound shows multiple renal calculi and mild hydroneph rosis. Would consider urologic evaluation. Would also consider CT scan with stone protocol. 3. Anemia. Monitor hemoglobin and hematocrit levels. 4. Mineral bone disorder, monitor calcium and phosphorus levels. 5. Hypertension. Continue current blood pressure regimen. 6. Acute left hip fracture secondary to mechanical fall. Continue medical management. 7. Diabetes. Continue current insulin regimen. 8. History of cerebrovascular accident. 9. Left humeral fracture. Continue immobilization. Dictated By: DOMINIC MUÑOZ/ANTONI Conf#: [id number] DID#: [id number]
--- NOTE | 2016-12-29 14:21 | RADRPT ---
PROCEDURE: CT abdomen and pelvis without IV contrast. CLINICAL INDICATION: Abdominal pain TECHNIQUE: CT scan of the abdomen and pelvis without contrast was performed on the [employer] volumetric [address] scanner. The patient was scanned without intravenous contrast. Coronal and sagittal refo rmatted images were obtained from the axial source images. The CTDI vol is 18.7 mGy and the DLP is 1 296.33 mGy-cm. One or more of the following dose reduction techniques were used: Automated exposure control. Adjustment of the mA and/or kV according to patient size. Use of iterative reconstruction technique. COMPARISON: CT pelvis from 12/26/2016 FINDINGS: CT abdomen: Small bilateral pleural effusions are seen with bibasilar atelectasis. Patchy ground-glass opacities are seen. The heart size is enlarged. A moderate sized pericardial effusion is seen. Aortic and co ronary vascular calcifications are seen. The ascending aorta is enlarged measuring approximately 4.5 x 4.2 cm in size. A pacemaker device is identified. The liver is normal in size and density and is without focal mass or intrahepatic biliary dilatation . The spleen is normal in size and homogeneous in density. The stomach is grossly unremarkable. T he pancreas as visualized is normal. The gallbladder and biliary tree are unremarkable and there is no evidence for common bile duct dilatation. Bilateral adrenal gland thickening is seen. The kidn eys are slightly small in size. Mild right hydroureteronephrosis is seen secondary to a 2 mm obstruc ting calculus in the ureterovesicular junction. Bilateral nonobstructive renal calculi are also seen with the largest seen in the left kidney measuring 9 mm in size. No left-sided obstructive uropath y or mass lesion is seen. The aorta is of normal in caliber. Aortic calcifications are seen. There is no retroperitoneal lymph adenopathy. The kavita hepatis region is clear. The small and large bowel and mesentery, as visuali zed, are unremarkable. The normal appendix is identified. CT pelvis: The pelvic organs are normal. Hemorrhage along the left pelvic sidewall is once again seen. In mary tion, hemorrhage in the presacral space is seen. The pelvic hemorrhage has not changed significantly . No pelvic mass, lymphadenopathy, or free fluid is seen. No acute inflammation is seen. The urina ry bladder wall is thickened which may be partially related to the decompressed a and is increased c ompared to the prior examination. Diffuse osteopenia is seen. Degenerative spondylosis of the lumbar spine is seen. A mild to moderate levoscoliosis is seen. Again seen is a comminuted fracture of the anterior posterior columns of the acetabulum as well as the quadrilateral plate. Comminuted fractures of the left superior inferior p ubic rami are also once again seen. No osteolytic or osteoblastic lesion is detected. IMPRESSION: 1. Mild left hydroureteronephrosis secondary to a 2 mm obstructing calculus in the ureter vesicular junction. 2. Comminuted left acetabular fracture as well as left superior inferior pubic rami fractures again seen as well as hemorrhage in the pelvis which has not changed significantly. 3. Nonobstructing bilateral renal calculi. 4. Findings suggestive of congestive heart failure as detailed above including moderate size perica rdial effusion. RPTAT: HPNM Physician Raymond Date Time Electronically viewed and signed by Physician Raymond on 12/29/2016 14:21 /
--- NOTE | 2016-12-29 14:59 | PN ---
Date/Time of Note Date/Time of Note DATE: 12/29/16 TIME: 14:54 Assessment/Plan VTE Prophylaxis VTE Prophylaxis Intervention: SCD's Lines/Catheters IV Catheter Type (from Nrs): Saline Lock Urinary Cath still in place: No Assessment/Plan Chief Complaint/Hosp Course 1. Acute left hip fracture s/p mechanical fall - CT scan of pelvis showed "comminuted and minimally displaced fracture involving the left anterior hong and acetabular columns there is also a mildly displaced fracture of the posterior wall and posterior column. There is involvement of the medial acetabular wall as well and articular surface involvement. Displacement is minimal. There are additional fractures involving the left anterior pubic ramus which is comminuted minimally displaced there is also fracture of the takeoff of the left superior pubic ramus near the acetabulum." - Ortho, Dr. Vegas, consulted from ED - Will await further recommendations from Ortho, stated will need bedrest, 4-6 weeks, with gradual increase in movement. -bucks traction @ 10 lbs will be setup on patient for L LE per physical therapy today - will put on bedrest - Pain control #obstructive nephrolithiasis -urology called, Dr. Liu, 85% chance 2mm stone will pass. Start flomax, continue hydration. -monitor Cr and pain, if worsens, may have to recall urology -strain urine -repeat imaging with US in 2-3 weeks. 2. DM - hold PO medications - A1c ordered - ISS and accuchecks 3. h/o CVA with residual weakness - will need bedrest for fractures 4. GABBI vs GABBI on CKD - nephrology consulted - US renal showing stones, repeat ct ab/pelvis ordered - pending recs - IV hydration 5. Left humeral fracture - Left arm in sling - Ortho on board 6. HTN - continue home medications - Hold lisinopril for now due to Cr 7. BPH - hold home medications 8. Diet - Carb control 9. GI ppx - Pepcid 10. DVT ppx - Heparin 11. Code status - DNR/DNI 12. Disposition -monitor obstructing stone, follow Cr, once bucks traction is applied and Cr safe and no flank pain, DC to SNF Problems: Subjective 24 Hr Interval Summary Free Text/Dictation no acute overnight events Exam/Review of Systems Vital Signs Vitals Vital Signs Date Time Temp Pulse Resp B/P Pulse Ox O2 Delivery O2 Flow Rate FiO2 12/29/16 12:16 60 12/29/16 11:55 98.1 18 131/69 97 12/29/16 08:00 Nasal Cannula 2.0 Intake and Output 12/28/16 12/28/16 12/29/16 15:00 23:00 07:00 Intake Total 600 ml 960 ml Balance 600 ml 960 ml Exam Physical exam General: Patient is laying in bed and answers questions Mentation: Patient is alert and oriented to self Head: Normocephalic atraumatic Eyes: EOMI, pupils reactive to light Neck: Supple, nontender, midline Respiratory: Clear to auscultation bilaterally Cardiovascular: regular rate, no obvious murmurs Gastrointestinal: non-tender to palpation, bowel sounds heard. Neurological: Moves all extremities spontaneously, but limited to no movement in L side given pain. Results Result Diagram: 12/29/16 0735 12/29/16 0735 Results 24 hrs Laboratory Tests Test 12/28/16 17:30 12/28/16 22:53 12/29/16 07:35 12/29/16 08:01 Bedside Glucose 183 129 136 White Blood Count 7.2 Red Blood Count 3.76 L Hemoglobin 11.1 L Hematocrit 34.7 L Mean Corpuscular Volume 92.3 Mean Corpuscular Hemoglobin 29.5 Mean Corpuscular Hemoglobin Concent 32.0 Red Cell Distribution Width 12.9 Platelet Count 138 L Mean Platelet Volume 10.2 Neutrophils % 69.4 Lymphocytes % 17.0 Monocytes % 6.2 Eosinophils % 6.2 Basophils % 0.8 Nucleated Red Blood Cells % 0.0 Neutrophils # 5.0 Lymphocytes # 1.2 Monocytes # 0.5 Eosinophils # 0.5 Basophils # 0.1 Nucleated Red Blood Cells # 0.0 Sodium Level 142 Potassium Level 4.2 Chloride Level 108 Carbon Dioxide Level 28 Anion Gap 10 # Blood Urea Nitrogen 24 H Creatinine 1.32 H Glucose Level 142 Calcium Level 8.1 L Phosphorus Level 3.1 Magnesium Level 1.7 Test 12/29/16 11:56 Bedside Glucose 178 Medications Medications Current Medications Cholecalciferol (Vitamin D) 2,000 unit DAILY PO Last administered on 12/29/16t 08:46; Admin Dose 2,000 UNIT; Start 12/27/16 at 09:00 Diltiazem HCl (Cardizem Cd) 180 mg DAILY PO Last administered on 12/29/16 08: 46; Admin Dose 180 MG; Start 12/27/16 at 09:00 Dutasteride (Avodart) 0.5 mg DAILY PO Last administered on 12/29/16 08:45; Admin Dose 0.5 MG; Start 12/27/16 at 09:00 Insulin Glargine (Lantus) 10 unit HS SC Last administered on 12/28/16 23:02; Admin Dose 10 UNIT; Start 12/26/16 at 21:00 Miscellaneous Information 1 ea NOTE XX ; Start 12/26/16 at 15:00 Glucose (Glutose) 15 gm Q15M PRN PO DECREASED GLUCOSE; Start 12/26/16 at 15:00 Glucose (Glutose) 22.5 gm Q15M PRN PO DECREASED GLUCOSE; Start 12/26/16 at 15: 00 Dextrose (D50w Syringe) 25 ml Q15M PRN IV DECREASED GLUCOSE; Start 12/26/16 at 15:00 Dextrose (D50w Syringe) 50 ml Q15M PRN IV DECREASED GLUCOSE; Start 12/26/16 at 15:00 Glucagon (Glucagen) 1 mg Q15M PRN IM DECREASED GLUCOSE; Start 12/26/16 at 15:00 Glucose (Glutose) 15 gm Q15M PRN BUCCAL DECREASED GLUCOSE; Start 12/26/16 at 15 :00 Ondansetron HCl (Zofran Inj) 4 mg Q6H PRN IV NAUSEA AND/OR VOMITING Last administered on 12/28/16 12:47; Admin Dose 4 MG; Start 12/26/16 at 15:00 Acetaminophen (Tylenol Tab) 650 mg Q6H PRN PO PAIN LEVEL 1-3 OR FEVER; Start 12/26/16 at 15:00 Acetaminophen/ Hydrocodone Bitart ([place] (5/325)) 1 tab Q6H PRN PO PAIN LEVEL 4 -6; Start 12/26/16 at 15:00 Morphine Sulfate (morphine) 2 mg Q4H PRN IV PAIN LEVEL 7-10 Last administered on 12/28/16 12:46; Admin Dose 2 MG; Start 12/26/16 at 15:00 Docusate Sodium (Colace) 100 mg Q12H PRN PO CONSTIPATION; Start 12/26/16 at 15: 00 Magnesium Hydroxide (Milk Of Mag) 30 ml DAILY PRN PO CONSTIPATION; Start at 15:00 Famotidine (Pepcid) 20 mg DAILY PO Last administered on 12/29/16 08:46; Admin Dose 20 MG; Start 12/26/16 at 16:00 Heparin Sodium (Porcine) (Heparin (5000 Units/0.5 ml)) 5,000 unit Q8 SC Last administered on 12/29/16 05:37; Admin Dose 5,000 UNIT; Start 12/26/16 at 22:00 Hydralazine HCl (Apresoline) 10 mg Q6H PRN IV SBP >160; Start 12/26/16 at 15:00 Diagnostic Test (Pha) (Accu-Chek) 1 ea 02 XX Last administered on 12/28/16 02: 44; Admin Dose 1 EA; Start 12/27/16 at 02:00 Polyethylene Glycol 17 gm 17 gm DAILY PRN PO CONSTIPATION; Start 12/28/16 at 10 :30 Sodium Chloride (NS) 1,000 ml @ 40 mls/hr Q24H IV Last administered on 05:38; Admin Dose 70 MLS/HR; Start 12/28/16 at 15:30 Aspirin (Aspirin) 81 mg DAILY PO ; Start 12/30/16 at 09:00 Tamsulosin HCl (Flomax) 0.4 mg HS PO ; Start 12/29/16 at 21:00 CHANDRIKA NICHOLAS Dec 29, 2016 14:59
[2016-12-29] MEDS: TAMSULOSIN (SR) 0.4 MG CAP PO SCH (21:49)
[2016-12-29] MEDS: INSULIN GLARGINE [LANtus] 3 ML PEN SC SCH (21:52)
[2016-12-30] VITALS (12 sets, daily range): BP systolic 114–128; BP diastolic 60–82; PULSE 61–67; RESP 16–18
[2016-12-30] MEDS: ACCU-CHEK XX SCH (02:00)
[2016-12-30] MEDS: SOD CHLORIDE 0.9% 1,000 ML IV SCH (04:45)
[2016-12-30] MEDS: INSULIN ASPART [NOVOLOG] 3 ML PEN SC SCH ×4 (08:00→20:39)
[2016-12-30] MEDS: DUTASTERIDE 0.5 MG CAP PO SCH (08:39)
[2016-12-30] MEDS: FAMOTIDINE 20 MG TAB PO SCH (08:39)
[2016-12-30] MEDS: ASPIRIN 81 MG TAB PO SCH (08:39)
[2016-12-30] MEDS: CHOLECALCIFEROL 2,000 UNIT CAP PO SCH (08:39)
[2016-12-30] MEDS: DILTIAZEM (CD) 180 MG CAP PO SCH (08:40)
[2016-12-30] MEDS: BALSAM PERU/CASTOR OIL 60 GM TUBE TOP SCH ×2 (08:41→20:40)
[2016-12-30 08:57] LABS: CALCIUM 8.5 mg/dl (8.4-10.2); CREATININE 1.22 mg/dl (0.61-1.24); MAGNESIUM 1.7 mg/dl (1.7-2.5); PHOSPHORUS 3.4 mg/dl (2.5-4.9); POTASSIUM 4.2 mmol/L (3.5-5.1)
--- NOTE | 2016-12-30 09:07 | PN ---
DATE: 12/30/2016 SUBJECTIVE: The patient is stable. No events overnight. No fevers, chills, nausea, vomiting. OBJECTIVE: VITAL SIGNS: Blood pressure is 118/82, respiration 18, pulse 92, temperature 98.2. HEENT: Head is normocephalic. NECK: Supple. HEART: Regular rate. LUNGS: Show diminished breath sounds at the base. ABDOMEN: Soft, nontender to palpation. No rebound or guarding. EXTREMITIES: Negative for clubbing, cyanosis, no edema. DERMATOLOGIC: No rashes. MUSCULOSKELETAL: No joint effusions. NEUROLOGIC: No change in exam. MEDICATIONS: The patient's medications have been reviewed. LABORATORY DATA: Has been reviewed, currently pending for 12/30/2016. IMAGING STUDIES: CT scan showed mild left hydroureteronephrosis secondary to obstructing calculus i n the ureterovesicular junction and a comminuted left acetabular fracture, nonobstructing bilateral renal calculi. ASSESSMENT AND PLAN: 1. Nonoliguric acute kidney injury on top of chronic kidney disease with previous baseline creatini ne 1.1 mg/dL. The etiology of acute kidney injury appears to be multifactorial secondary to hemodyn amics, component of obstructive uropathy, FLORA inhibitor effect. The patient's CT scan of the abdome n and pelvis showed left obstructive uropathy with hydroureteronephrosis secondary to 2 mm obstructi ng calculus. The patient is pending urology evaluation. At this point, would continue to strain fo r urinary stone. Would otherwise continue current treatment plan, supportive care, renally dose all medications. 2. Left hydroureteronephrosis due to obstructing calculi. We will continue current medical managem ent, follow up with urology. 3. Anemia. Monitor any change in levels. 4. Mineral bone disorder. Monitor calcium and phosphorus levels. 5. Hypertension. Continue current blood pressure regimen. 6. Comminuted left acetabular fracture secondary to mechanical fall. Continue medical management. 7. Diabetes. Continue current insulin regimen. 8. History of cerebrovascular accident. 9. Left humeral fracture. Continue immobilization. Dictated By: DOMINIC MUÑOZ/NTS Conf#: [id number] DID#: [id number]
[2016-12-30 14:09] LABS: MICROALBUMIN 14.9 mg/dL
--- NOTE | 2016-12-30 14:51 | PN ---
Date/Time of Note Date/Time of Note DATE: 12/30/16 TIME: 14:41 Assessment/Plan VTE Prophylaxis VTE Prophylaxis Intervention: SCD's Lines/Catheters IV Catheter Type (from Nrsg): Saline Lock Urinary Cath still in place: Yes Reason Cath still needed: urinary retention Assessment/Plan Chief Complaint/Hosp Course 1. Acute left hip fracture s/p mechanical fall - CT scan of pelvis showed "comminuted and minimally displaced fracture involving the left anterior hong and acetabular columns there is also a mildly displaced fracture of the posterior wall and posterior column. There is involvement of the medial acetabular wall as well and articular surface involvement. Displacement is minimal. There are additional fractures involving the left anterior pubic ramus which is comminuted minimally displaced there is also fracture of the takeoff of the left superior pubic ramus near the acetabulum." - Ortho, Dr. Vegas, consulted from ED - Will await further recommendations from Ortho, stated will need bedrest, 4-6 weeks, with gradual increase in movement. -bucks traction @ 10 lbs will be setup on patient for L LE per physical therapy - will put on bedrest - Pain control #obstructive nephrolithiasis -urology called, Dr. Liu, 85% chance 2mm stone will pass. Start flomax, continue hydration. -monitor Cr and pain, if worsens, may have to recall urology and urology will consult. -strain urine, broken up stones/sediments found overnight, sending to lab for analysis -repeat imaging with US in 2-3 weeks. 2. DM - hold PO medications - A1c ordered - ISS and accuchecks 3. h/o CVA with residual weakness - will need bedrest for fractures - asa 4. GABBI vs GABBI on CKD - nephrology consulted - US renal showing stones, repeat ct ab/pelvis ordered - pending recs - IV hydration - resolved 5. Left humeral fracture - Left arm in sling - Ortho on board 6. HTN - continue home medications - holding lisinopril due to GABBI, but since resolved, may consider restarting if used for CAD, but at very low dose since BP is stable -2.5mg lisinopril for now 7. BPH - hold home medications 8. Diet - Carb control 9. GI ppx - Pepcid 10. DVT ppx - Heparin 11. Code status - DNR/DNI 12. 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, will need monitoring and urology followup Problems: Subjective 24 Hr Interval Summary Free Text/Dictation no pain in flanks Exam/Review of Systems Vital Signs Vitals Vital Signs Date Time Temp Pulse Resp B/P Pulse Ox O2 Delivery O2 Flow Rate FiO2 12/30/16 12:08 64 12/30/16 11:33 98.1 18 128/67 97 12/30/16 07:46 Nasal Cannula 2.0 Intake and Output 12/29/16 12/29/16 12/30/16 15:00 23:00 07:00 Intake Total 350 ml 300 ml Output Total 1200 ml Balance 350 ml -900 ml Exam Physical exam General: Patient is laying in bed and answers questions Mentation: Patient is alert and oriented to self Head: Normocephalic atraumatic Eyes: EOMI, pupils reactive to light Neck: Supple, nontender, midline Respiratory: Clear to auscultation bilaterally Cardiovascular: regular rate, no obvious murmurs Gastrointestinal: non-tender to palpation, bowel sounds heard. Neurological: Moves all extremities spontaneously, but limited to no movement in L side given pain. Results Result Diagram: 12/29/16 0735 12/30/16 0808 Results 24 hrs Laboratory Tests Test 12/29/16 17:14 12/29/16 21:44 12/30/16 07:56 12/30/16 08:08 Bedside Glucose 148 147 127 Sodium Level 141 Potassium Level 4.2 Chloride Level 105 Carbon Dioxide Level 30 Anion Gap 10 Blood Urea Nitrogen 23 H Creatinine 1.22 Glucose Level 129 Calcium Level 8.5 Phosphorus Level 3.4 Magnesium Level 1.7 Test 12/30/16 11:45 Bedside Glucose 162 Medications Medications Current Medications Cholecalciferol (Vitamin D) 2,000 unit DAILY PO Last administered on 12/30/16 08:39; Admin Dose 2,000 UNIT; Start 12/27/16 at 09:00 Diltiazem HCl (Cardizem Cd) 180 mg DAILY PO Last administered on 12/30/16 08: 40; Admin Dose 180 MG; Start 12/27/16 at 09:00 Dutasteride (Avodart) 0.5 mg DAILY PO Last administered on 12/30/16 08:39; Admin Dose 0.5 MG; Start 12/27/16 at 09:00 Insulin Glargine (Lantus) 10 unit HS SC Last administered on 12/29/16 21:52; Admin Dose 10 UNIT; Start 12/26/16 at 21:00 Miscellaneous Information 1 ea NOTE XX ; Start 12/26/16 at 15:00 Glucose (Glutose) 15 gm Q15M PRN PO DECREASED GLUCOSE; Start 12/26/16 at 15:00 Glucose (Glutose) 22.5 gm Q15M PRN PO DECREASED GLUCOSE; Start 12/26/16 at 15: 00 Dextrose (D50w Syringe) 25 ml Q15M PRN IV DECREASED GLUCOSE; Start 12/26/16 at 15:00 Dextrose (D50w Syringe) 50 ml Q15M PRN IV DECREASED GLUCOSE; Start 12/26/16 at 15:00 Glucagon (Glucagen) 1 mg Q15M PRN IM DECREASED GLUCOSE; Start 12/26/16 at 15:00 Glucose (Glutose) 15 gm Q15M PRN BUCCAL DECREASED GLUCOSE; Start 12/26/16 at 15 :00 Ondansetron HCl (Zofran Inj) 4 mg Q6H PRN IV NAUSEA AND/OR VOMITING Last administered on 12/28/16 12:47; Admin Dose 4 MG; Start 12/26/16 at 15:00 Acetaminophen (Tylenol Tab) 650 mg Q6H PRN PO PAIN LEVEL 1-3 OR FEVER; Start 12/26/16 at 15:00 Acetaminophen/ Hydrocodone Bitart ([place] (5/325)) 1 tab Q6H PRN PO PAIN LEVEL 4 -6; Start 12/26/16 at 15:00 Morphine Sulfate (morphine) 2 mg Q4H PRN IV PAIN LEVEL 7-10 Last administered on 12/28/16 12:46; Admin Dose 2 MG; Start 12/26/16 at 15:00 Docusate Sodium (Colace) 100 mg Q12H PRN PO CONSTIPATION; Start 12/26/16 at 15: 00 Magnesium Hydroxide (Milk Of Mag) 30 ml DAILY PRN PO CONSTIPATION; Start at 15:00 Famotidine (Pepcid) 20 mg DAILY PO Last administered on 12/30/16 08:39; Admin Dose 20 MG; Start 12/26/16 at 16:00 Hydralazine HCl (Apresoline) 10 mg Q6H PRN IV SBP >160; Start 12/26/16 at 15:00 Diagnostic Test (Pha) (Accu-Chek) 1 ea 02 XX Last administered on 12/28/16 02: 44; Admin Dose 1 EA; Start 12/27/16 at 02:00 Polyethylene Glycol 17 gm 17 gm DAILY PRN PO CONSTIPATION; Start 12/28/16 at 10 :30 Sodium Chloride (NS) 1,000 ml @ 40 mls/hr Q24H IV Last administered on 04:45; Admin Dose 40 MLS/HR; Start 12/28/16 at 15:30 Aspirin (Aspirin) 81 mg DAILY PO Last administered on 12/30/16 08:39; Admin Dose 81 MG; Start 12/30/16 at 09:00 Tamsulosin HCl (Flomax) 0.4 mg HS PO Last administered on 12/29/16 21:49; Admin Dose 0.4 MG; Start 12/29/16 at 21:00 CHANDRIKA NICHOLAS Dec 30, 2016 14:51
[2016-12-30] MEDS: HYDROCODONE/APAP (5/325) TAB PO PRN (20:32)
[2016-12-30] MEDS: TAMSULOSIN (SR) 0.4 MG CAP PO SCH (20:32)
[2016-12-30] MEDS: INSULIN GLARGINE [LANtus] 3 ML PEN SC SCH (20:34)
[2016-12-31] VITALS (13 sets, daily range): BP systolic 109–133; BP diastolic 58–72; PULSE 60–80; RESP 15–19
[2016-12-31] MEDS: ACCU-CHEK XX SCH (02:00)
[2016-12-31] MEDS: SOD CHLORIDE 0.9% 1,000 ML IV SCH (04:45)
[2016-12-31] MEDS: INSULIN ASPART [NOVOLOG] 3 ML PEN SC SCH ×4 (08:00→20:32)
[2016-12-31 08:16] LABS: ADD UMIC YES; UR AMORPHOUS CRYSTAL FEW /HPF (NONE SEEN); UR ASCORBIC ACID NEGATIVE (NEGATIVE); UR BACTERIA FEW /HPF (NONE SEEN); UR BILIRUBIN (Dip) NEGATIVE (NEGATIVE); UR BLOOD (Dip) 2+ mg/dL (NEGATIVE); UR CLARITY CLOUDY (CLEAR); UR COLOR YELLOW (YELLOW); UR GLUCOSE (Dip) NEGATIVE (NEGATIVE); UR KETONES (Dip) NEGATIVE (NEGATIVE); UR LEUKOCYTE ESTERASE (Dip) 3+ Leu/ul (NEGATIVE); UR NITRITE (Dip) NEGATIVE (NEGATIVE); UR RBC 46 /HPF (0-5); UR SPECIFIC GRAVITY (Dip) 1.011 (1.003-1.030); UR TOTAL PROTEIN (Dip) 1+ mg/dl (NEGATIVE); UR UROBILINOGEN (Dip) NEGATIVE (NEGATIVE)
[2016-12-31 08:42] LABS: BASOPHILS % 0.6 % (0.0-2.0); EOSINOPHILS # 0.5 10^3/ul (0.0-0.5); EOSINOPHILS % 7.4 % (0.0-7.0); HEMOGLOBIN 11.4 g/dl (14.0-18.0); LYMPHOCYTES # 1.5 10^3/ul (0.8-2.9); LYMPHOCYTES % 21.4 % (15.0-51.0); MEAN CORPUSCULAR HEMOGLOBIN 29.7 pg (29.0-33.0); MEAN CORPUSCULAR HGB CONC 32.6 g/dl (32.0-37.0); MEAN CORPUSCULAR VOLUME 91.1 fl (82.0-101.0); MEAN PLATELET VOLUME 10.5 fl (7.4-10.4); MONOCYTE # 0.6 10^3/ul (0.3-0.9); MONOCYTES % 8.5 % (0.0-11.0); NEUTROPHIL # 4.3 10^3/ul (1.6-7.5); NEUTROPHILS % 61.7 % (39.0-77.0); PLATELET COUNT 164 10^3/UL (140-415); RED BLOOD COUNT 3.84 10^6/ul (4.70-6.10); RED CELL DISTRIBUTION WIDTH 12.8 % (11.5-14.5)
--- NOTE | 2016-12-31 08:56 | PN ---
DATE: 12/31/2016 SUBJECTIVE: The patient is stable. No events overnight. No fevers, chills, nausea, vomiting, no s hortness of breath. OBJECTIVE: VITAL SIGNS: Blood pressure is 113/65, respiration 17, pulse 68, temperature 98.4. HEENT: Head is normocephalic. NECK: Supple. HEART: Regular rate. LUNGS: Show diminished breath sounds at the base. ABDOMEN: Soft, nontender to palpation. No rebound or guarding. EXTREMITIES: Negative for clubbing, cyanosis. No edema. DERMATOLOGIC: No rashes. MUSCULOSKELETAL: No joint effusions. NEUROLOGIC: No change in exam. MEDICATIONS: The patient's medications have been reviewed. LABORATORY DATA: Shows from 12/30/2016 was reviewed. From 12/31/2016 is pending. ASSESSMENT AND PLAN: 1. Nonoliguric acute kidney injury on top of chronic kidney disease with previous baseline creatini ne of 1.12 mg/dL. Etiology of acute kidney injury was multifactorial secondary to possible obstruct sunshine uropathy, FLORA inhibitor effect, hemodynamics. The patient's renal function has been improving. At this point, will continue current treatment plan, supportive care, renally dose all meds. 2. Left hydroureteronephrosis due to nephrolithiasis. The patient clinically improving. Continue gentle hydration. Continue to strain urine. Follow up with urology. The patient has been started on Flomax and will continue. 3. Anemia. Monitor hemoglobin and hematocrit levels. 4. Mineral bone disorder. Continue to monitor calcium and phosphorus levels. 5. Hypertension. Continue current blood pressure regimen. 6. Left acetabular fracture secondary to fall. Continue medical management. 7. Diabetes. Continue current insulin regimen. 8. History of cerebrovascular accident. 9. Left femoral fracture. Dictated By: DOMINIC MUÑOZ/ANTONI Conf#: [id number] DID#: [id number]
[2016-12-31] MEDS: FAMOTIDINE 20 MG TAB PO SCH (09:01)
[2016-12-31] MEDS: CHOLECALCIFEROL 2,000 UNIT CAP PO SCH (09:01)
[2016-12-31] MEDS: DILTIAZEM (CD) 180 MG CAP PO SCH (09:01)
[2016-12-31] MEDS: DUTASTERIDE 0.5 MG CAP PO SCH (09:01)
[2016-12-31] MEDS: ASPIRIN 81 MG TAB PO SCH (09:01)
[2016-12-31] MEDS: BALSAM PERU/CASTOR OIL 60 GM TUBE TOP SCH ×2 (09:02→20:33)
[2016-12-31 09:04] LABS: CALCIUM 8.7 mg/dl (8.4-10.2); CREATININE 1.38 mg/dl (0.61-1.24); MAGNESIUM 1.8 mg/dl (1.7-2.5); PHOSPHORUS 3.8 mg/dl (2.5-4.9); POTASSIUM 4.3 mmol/L (3.5-5.1)
--- NOTE | 2016-12-31 12:21 | PN ---
Date/Time of Note Date/Time of Note DATE: 12/31/16 TIME: 12:16 Assessment/Plan VTE Prophylaxis VTE Prophylaxis Intervention: SCD's Lines/Catheters IV Catheter Type (from Nrsg): Saline Lock Urinary Cath still in place: Yes Reason Cath still needed: terminal illness/intractable pain Assessment/Plan Chief Complaint/Hosp Course #UTI -On ceftriaxone, started today #. Acute left hip fracture s/p mechanical fall - CT scan of pelvis showed "comminuted and minimally displaced fracture involving the left anterior hong and acetabular columns there is also a mildly displaced fracture of the posterior wall and posterior column. There is involvement of the medial acetabular wall as well and articular surface involvement. Displacement is minimal. There are additional fractures involving the left anterior pubic ramus which is comminuted minimally displaced there is also fracture of the takeoff of the left superior pubic ramus near the acetabulum." - Ortho, Dr. Vegas, consulted from ED - Will await further recommendations from Ortho, stated will need bedrest, 4-6 weeks, with gradual increase in movement. -bucks traction @ 10 lbs will be setup on patient for L LE per physical therapy - will put on bedrest - Pain control #obstructive nephrolithiasis -urology called, Dr. Liu, 85% chance 2mm stone will pass. Start flomax, continue hydration. -monitor Cr and pain, if worsens, may have to recall urology and urology will consult. -strain urine, broken up stones/sediments found overnight, sending to lab for analysis -repeat imaging with US in 2-3 weeks. #. DM - hold PO medications - A1c ordered - ISS and accuchecks #. h/o CVA with residual weakness - will need bedrest for fractures - asa #. GABBI vs GABBI on CKD - nephrology consulted - US renal showing stones, repeat ct ab/pelvis ordered - pending recs - IV hydration - slight worsening today #. Left humeral fracture - Left arm in sling - Ortho on board #. HTN - continue home medications - holding lisinopril due to GABBI, but since resolved, may consider restarting if used for CAD, but at very low dose since BP is stable -2.5mg lisinopril to restart if stable. #. BPH - hold home medications #. Diet - Carb control #. GI ppx - Pepcid #. DVT ppx - scd #. Code status - DNR/DNI 12. 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, will need monitoring and urology followup Problems: Subjective 24 Hr Interval Summary Free Text/Dictation no acute complaints Exam/Review of Systems Vital Signs Vitals Vital Signs Date Time Temp Pulse Resp B/P Pulse Ox O2 Delivery O2 Flow Rate FiO2 12/31/16 08:33 60 12/31/16 08:30 Nasal Cannula 2.0 12/31/16 07:33 98.4 17 113/65 96 Intake and Output 12/30/16 12/30/16 12/31/16 15:00 23:00 07:00 Intake Total 500 ml Output Total 800 ml Balance -300 ml Exam Physical exam General: Patient is laying in bed and answers questions Mentation: Patient is alert and oriented to self Head: Normocephalic atraumatic Eyes: EOMI, pupils reactive to light Neck: Supple, nontender, midline Respiratory: Clear to auscultation bilaterally Cardiovascular: regular rate, no obvious murmurs Gastrointestinal: non-tender to palpation, bowel sounds heard. Neurological: Moves all extremities spontaneously, but limited to no movement in L LE given pain with movement Results Result Diagram: 12/31/16 0745 12/31/16 0745 Results 24 hrs Laboratory Tests Test 12/30/16 17:40 12/30/16 20:30 12/31/16 05:40 12/31/16 07:45 Bedside Glucose 129 159 Urine Color YELLOW Urine Clarity CLOUDY A Urine pH 7.0 Urine Specific [place] 1.011 Urine Ketones NEGATIVE Urine Nitrite NEGATIVE Urine Bilirubin NEGATIVE Urine Urobilinogen NEGATIVE Urine Leukocyte Esterase 3+ H Urine Microscopic RBC 46 H Urine Microscopic WBC > 182 H Urine Amorphous Crystals FEW A Urine Bacteria FEW A Urine Hemoglobin 2+ H Urine Glucose NEGATIVE Urine Total Protein 1+ H White Blood Count 7.0 Red Blood Count 3.84 L Hemoglobin 11.4 L Hematocrit 35.0 L Mean Corpuscular Volume 91.1 Mean Corpuscular Hemoglobin 29.7 Mean Corpuscular Hemoglobin Concent 32.6 Red Cell Distribution Width 12.8 Platelet Count 164 Mean Platelet Volume 10.5 H Neutrophils % 61.7 Lymphocytes % 21.4 Monocytes % 8.5 Eosinophils % 7.4 H Basophils % 0.6 Nucleated Red Blood Cells % 0.0 Neutrophils # 4.3 Lymphocytes # 1.5 Monocytes # 0.6 Eosinophils # 0.5 Basophils # 0.0 Nucleated Red Blood Cells # 0.0 Sodium Level 140 Potassium Level 4.3 Chloride Level 102 Carbon Dioxide Level 30 Anion Gap 12 Blood Urea Nitrogen 31 H Creatinine 1.38 H Glucose Level 146 Calcium Level 8.7 Phosphorus Level 3.8 Magnesium Level 1.8 Test 12/31/16 07:57 12/31/16 11:52 Bedside Glucose 153 155 Medications Medications Current Medications Cholecalciferol (Vitamin D) 2,000 unit DAILY PO Last administered on 09:01; Admin Dose 2,000 UNIT; Start 12/27/16 at 09:00 Diltiazem HCl (Cardizem Cd) 180 mg DAILY PO Last administered on 12/31/16 09: 01; Admin Dose 180 MG; Start 12/27/16 at 09:00 Dutasteride (Avodart) 0.5 mg DAILY PO Last administered on 12/31/16 09:01; Admin Dose 0.5 MG; Start 12/27/16 at 09:00 Insulin Glargine (Lantus) 10 unit HS SC Last administered on 12/30/16 20:34; Admin Dose 10 UNIT; Start 12/26/16 at 21:00 Miscellaneous Information 1 ea NOTE XX ; Start 12/26/16 at 15:00 Glucose (Glutose) 15 gm Q15M PRN PO DECREASED GLUCOSE; Start 12/26/16 at 15:00 Glucose (Glutose) 22.5 gm Q15M PRN PO DECREASED GLUCOSE; Start 12/26/16 at 15: 00 Dextrose (D50w Syringe) 25 ml Q15M PRN IV DECREASED GLUCOSE; Start 12/26/16 at 15:00 Dextrose (D50w Syringe) 50 ml Q15M PRN IV DECREASED GLUCOSE; Start 12/26/16 at 15:00 Glucagon (Glucagen) 1 mg Q15M PRN IM DECREASED GLUCOSE; Start 12/26/16 at 15:00 Glucose (Glutose) 15 gm Q15M PRN BUCCAL DECREASED GLUCOSE; Start 12/26/16 at 15 :00 Ondansetron HCl (Zofran Inj) 4 mg Q6H PRN IV NAUSEA AND/OR VOMITING Last administered on 12/28/16 12:47; Admin Dose 4 MG; Start 12/26/16 at 15:00 Acetaminophen (Tylenol Tab) 650 mg Q6H PRN PO PAIN LEVEL 1-3 OR FEVER; Start 12/26/16 at 15:00 Acetaminophen/ Hydrocodone Bitart ([place] (5/325)) 1 tab Q6H PRN PO PAIN LEVEL 4 -6 Last administered on 12/30/16 20:32; Admin Dose 1 TAB; Start 12/26/16 at 15: 00 Morphine Sulfate (morphine) 2 mg Q4H PRN IV PAIN LEVEL 7-10 Last administered on 12/28/16 12:46; Admin Dose 2 MG; Start 12/26/16 at 15:00 Docusate Sodium (Colace) 100 mg Q12H PRN PO CONSTIPATION; Start 12/26/16 at 15: 00 Magnesium Hydroxide (Milk Of Mag) 30 ml DAILY PRN PO CONSTIPATION; Start at 15:00 Famotidine (Pepcid) 20 mg DAILY PO Last administered on 12/31/16 09:01; Admin Dose 20 MG; Start 12/26/16 at 16:00 Hydralazine HCl (Apresoline) 10 mg Q6H PRN IV SBP >160; Start 12/26/16 at 15:00 Diagnostic Test (Pha) (Accu-Chek) 1 ea 02 XX Last administered on 12/28/16 02: 44; Admin Dose 1 EA; Start 12/27/16 at 02:00 Polyethylene Glycol 17 gm 17 gm DAILY PRN PO CONSTIPATION; Start 12/28/16 at 10 :30 Sodium Chloride (NS) 1,000 ml @ 40 mls/hr Q24H IV Last administered on 04:45; Admin Dose 40 MLS/HR; Start 12/28/16 at 15:30 Aspirin (Aspirin) 81 mg DAILY PO Last administered on 12/31/16 09:01; Admin Dose 81 MG; Start 12/30/16 at 09:00 Tamsulosin HCl 0.4 mg 0.4 mg HS PO Last administered on 11/9/17at 20:32; Admin Dose 0.4 MG; Start 12/29/16 at 21:00 Ceftriaxone Sodium (Rocephin) 50 ml @ 100 mls/hr Q24H IVPB ; Start 12/31/16 at 12:00 CHANDRIKA NICHOLAS Dec 31, 2016 12:21
[2016-12-31] MEDS: CEFTRIAXONE 1 GM/50 ML (PMX) 50 ML IVPB SCH (12:38)
[2016-12-31] MEDS: HYDROCODONE/APAP (5/325) TAB PO PRN (14:56)
--- NOTE | 2016-12-31 19:21 | RADRPT ---
PROCEDURE: XR Pelvis. CLINICAL INDICATION: Pelvic pain. Left hip pain. TECHNIQUE: Single AP view of the pelvis. COMPARISON: Pelvis x-ray dated 12/26/2016. CT scan of pelvis dated 12/26/2016. FINDINGS: There is a Saini catheter in the bladder. There is a comminuted fracture of the left acetabulum similar to the prior study. There is abduction of the left hip. The right hip is unremarkable. There are degenerative changes of the lower lumbar spine. Vascular calcifications are present consistent with atherosclerosis. The patient is rotated to the left. IMPRESSION: 1. Saini catheter in the bladder. 2. Comminuted fracture of the left acetabulum as seen previously. 3. Abduction of the left hip. 4. Degenerative changes of the lower lumbar spine. 5. Atherosclerosis. RPTAT: QQ .Sai Okeefe MD, MD Date Time Electronically viewed and signed by .Sai Okeefe MD, MD on 12/31/2016 19:20 .R/
[2016-12-31] MEDS: TAMSULOSIN (SR) 0.4 MG CAP PO SCH (20:25)
[2016-12-31] MEDS: INSULIN GLARGINE [LANtus] 3 ML PEN SC SCH (20:27)
[2017-01-01] VITALS (11 sets, daily range): BP systolic 112–141; BP diastolic 63–76; PULSE 62–77; RESP 16–18
[2017-01-01] MEDS: ACCU-CHEK XX SCH (02:00)
[2017-01-01] MEDS: SOD CHLORIDE 0.9% 1,000 ML IV SCH (04:45)
[2017-01-01 06:18] LABS: BASOPHILS % 0.4 % (0.0-2.0); EOSINOPHILS # 0.5 10^3/ul (0.0-0.5); EOSINOPHILS % 6.9 % (0.0-7.0); HEMATOCRIT 35.4 % (42.0-52.0); HEMOGLOBIN 11.6 g/dl (14.0-18.0); LYMPHOCYTES % 26.3 % (15.0-51.0); MEAN CORPUSCULAR HEMOGLOBIN 29.8 pg (29.0-33.0); MEAN CORPUSCULAR HGB CONC 32.8 g/dl (32.0-37.0); MEAN PLATELET VOLUME 9.8 fl (7.4-10.4); MONOCYTE # 0.6 10^3/ul (0.3-0.9); MONOCYTES % 8.4 % (0.0-11.0); NEUTROPHIL # 4.3 10^3/ul (1.6-7.5); NEUTROPHILS % 57.6 % (39.0-77.0); PLATELET COUNT 161 10^3/UL (140-415); RED BLOOD COUNT 3.89 10^6/ul (4.70-6.10); RED CELL DISTRIBUTION WIDTH 12.6 % (11.5-14.5); WHITE BLOOD COUNT 7.5 10^3/ul (4.8-10.8)
[2017-01-01 06:46] LABS: CALCIUM 8.7 mg/dl (8.4-10.2); CREATININE 1.44 mg/dl (0.61-1.24); MAGNESIUM 1.7 mg/dl (1.7-2.5); PHOSPHORUS 4.2 mg/dl (2.5-4.9)
[2017-01-01] MEDS: INSULIN ASPART [NOVOLOG] 3 ML PEN SC SCH ×4 (08:02→20:53)
--- NOTE | 2017-01-01 08:49 | CONS ---
Date/Time of Note Date/Time of Note DATE: 01/01/17 TIME: 08:48 Consult Date/Type/Reason Admit Date/Time Dec 26, 2016 at 13:52 Initial Consult Date Ordering Provider: MONIKA CHRISTINA MD Subjective The patient is stable. No events overnight. No fevers, chills, nausea, vomiting, no shortness of breath. continues good uo. poc reviewed with dr. mcdaniel, OBJECTIVE: HEENT: Head is normocephalic. NECK: Supple. HEART: Regular rate. LUNGS: Show diminished breath sounds at the base. ABDOMEN: Soft, nontender to palpation. No rebound or guarding. EXTREMITIES: Negative for clubbing, cyanosis. No edema. DERMATOLOGIC: No rashes. MUSCULOSKELETAL: No joint effusions. NEUROLOGIC: No change in exam. MEDICATIONS: The patient's medications have been reviewed. Objective Vital Signs Date Time Temp Pulse Resp B/P Pulse Ox O2 Delivery O2 Flow Rate FiO2 01/01/17 08:18 62 01/01/17 07:56 99.0 18 112/63 94 12/31/16 20:00 Nasal Cannula 2.0 Intake and Output 12/31/16 12/31/16 01/01/17 14:59 22:59 06:59 Intake Total 50 ml 450 ml 500 ml Output Total 800 ml 1200 ml Balance 50 ml -350 ml -700 ml Results/Medications Result Diagram: 01/01/17 0553 01/01/17 0553 Results 24 hrs Laboratory Tests Test 12/31/16 11:52 12/31/16 17:18 12/31/16 20:09 01/01/17 05:53 Bedside Glucose 155 144 163 White Blood Count 7.5 Red Blood Count 3.89 L Hemoglobin 11.6 L Hematocrit 35.4 L Mean Corpuscular Volume 91.0 Mean Corpuscular Hemoglobin 29.8 Mean Corpuscular Hemoglobin Concent 32.8 Red Cell Distribution Width 12.6 Platelet Count 161 Mean Platelet Volume 9.8 Neutrophils % 57.6 Lymphocytes % 26.3 Monocytes % 8.4 Eosinophils % 6.9 Basophils % 0.4 Nucleated Red Blood Cells % 0.0 Neutrophils # 4.3 Lymphocytes # 2.0 Monocytes # 0.6 Eosinophils # 0.5 Basophils # 0.0 Nucleated Red Blood Cells # 0.0 Sodium Level 138 Potassium Level 4.0 Chloride Level 101 Carbon Dioxide Level 31 Anion Gap 10 Blood Urea Nitrogen 36 H Creatinine 1.44 H Glucose Level 167 Calcium Level 8.7 Phosphorus Level 4.2 Magnesium Level 1.7 Test 01/01/17 07:59 Bedside Glucose 162 Medications Current Medications Cholecalciferol (Vitamin D) 2,000 unit DAILY PO Last administered on 09:01; Admin Dose 2,000 UNIT; Start 12/27/16 at 09:00 Diltiazem HCl (Cardizem Cd) 180 mg DAILY PO Last administered on 12/31/16 09: 01; Admin Dose 180 MG; Start 12/27/16 at 09:00 Dutasteride (Avodart) 0.5 mg DAILY PO Last administered on 12/31/16 09:01; Admin Dose 0.5 MG; Start 12/27/16 at 09:00 Insulin Glargine (Lantus) 10 unit HS SC Last administered on 12/31/16 20:27; Admin Dose 10 UNIT; Start 12/26/16 at 21:00 Miscellaneous Information 1 ea NOTE XX ; Start 12/26/16 at 15:00 Glucose (Glutose) 15 gm Q15M PRN PO DECREASED GLUCOSE; Start 12/26/16 at 15:00 Glucose (Glutose) 22.5 gm Q15M PRN PO DECREASED GLUCOSE; Start 12/26/16 at 15: 00 Dextrose (D50w Syringe) 25 ml Q15M PRN IV DECREASED GLUCOSE; Start 12/26/16 at 15:00 Dextrose (D50w Syringe) 50 ml Q15M PRN IV DECREASED GLUCOSE; Start 12/26/16 at 15:00 Glucagon (Glucagen) 1 mg Q15M PRN IM DECREASED GLUCOSE; Start 12/26/16 at 15:00 Glucose (Glutose) 15 gm Q15M PRN BUCCAL DECREASED GLUCOSE; Start 12/26/16 at 15 :00 Ondansetron HCl (Zofran Inj) 4 mg Q6H PRN IV NAUSEA AND/OR VOMITING Last administered on 12/28/16 12:47; Admin Dose 4 MG; Start 12/26/16 at 15:00 Acetaminophen (Tylenol Tab) 650 mg Q6H PRN PO PAIN LEVEL 1-3 OR FEVER; Start 12/26/16 at 15:00 Acetaminophen/ Hydrocodone Bitart ([place] (5/325)) 1 tab Q6H PRN PO PAIN LEVEL 4 -6 Last administered on 12/31/16 14:56; Admin Dose 1 TAB; Start 12/26/16 at 15 :00 Morphine Sulfate (morphine) 2 mg Q4H PRN IV PAIN LEVEL 7-10 Last administered on 12/28/16 12:46; Admin Dose 2 MG; Start 12/26/16 at 15:00 Docusate Sodium (Colace) 100 mg Q12H PRN PO CONSTIPATION; Start 12/26/16 at 15: 00 Magnesium Hydroxide (Milk Of Mag) 30 ml DAILY PRN PO CONSTIPATION; Start at 15:00 Famotidine (Pepcid) 20 mg DAILY PO Last administered on 12/31/16 09:01; Admin Dose 20 MG; Start 12/26/16 at 16:00 Hydralazine HCl (Apresoline) 10 mg Q6H PRN IV SBP >160; Start 12/26/16 at 15:00 Diagnostic Test (Pha) (Accu-Chek) 1 ea 02 XX Last administered on 12/28/16 02: 44; Admin Dose 1 EA; Start 12/27/16 at 02:00 Polyethylene Glycol 17 gm 17 gm DAILY PRN PO CONSTIPATION; Start 12/28/16 at 10 :30 Sodium Chloride (NS) 1,000 ml @ 40 mls/hr Q24H IV Last administered on 04:45; Admin Dose 40 MLS/HR; Start 12/28/16 at 15:30 Aspirin (Aspirin) 81 mg DAILY PO Last administered on 12/31/16 09:01; Admin Dose 81 MG; Start 12/30/16 at 09:00 Tamsulosin HCl 0.4 mg 0.4 mg HS PO Last administered on 12/31/16 20:25; Admin Dose 0.4 MG; Start 12/29/16 at 21:00 Ceftriaxone Sodium (Rocephin) 50 ml @ 100 mls/hr Q24H IVPB Last administered on 12/31/16 12:38; Admin Dose 100 MLS/HR; Start 12/31/16 at 12:00 Assessment/Plan Chief Complaint/Hosp Course 1. Nonoliguric acute kidney injury on top of chronic kidney disease with previous baseline creatinine of 1.12 mg/dL. Etiology of acute kidney injury was multifactorial secondary to possible obstructive uropathy, FLORA inhibitor effect, hemodynamics. The patient's renal function has been improving. At this point, will continue current treatment plan, supportive care, renally dose all meds. watch for diuretic phase of lin with electrolyte wasting. 2. Left hydroureteronephrosis due to nephrolithiasis. The patient clinically improving. Continue gentle hydration. Continue to strain urine. Follow up with urology. The patient has been started on Flomax and will continue. 3. Anemia. Monitor hemoglobin and hematocrit levels. 4. Mineral bone disorder. Continue to monitor calcium and phosphorus levels. 5. Hypertension. Continue current blood pressure regimen. 6. Left acetabular fracture secondary to fall. Continue medical management. 7. Diabetes. Continue current insulin regimen. 8. History of cerebrovascular accident. Problems: MIGUEL ELIZABETH MD Jan 01, 2017 08:49
[2017-01-01] MEDS: DUTASTERIDE 0.5 MG CAP PO SCH (09:16)
[2017-01-01] MEDS: ASPIRIN 81 MG TAB PO SCH (09:16)
[2017-01-01] MEDS: CHOLECALCIFEROL 2,000 UNIT CAP PO SCH (09:16)
[2017-01-01] MEDS: FAMOTIDINE 20 MG TAB PO SCH (09:16)
[2017-01-01] MEDS: DILTIAZEM (CD) 180 MG CAP PO SCH (09:16)
[2017-01-01] MEDS: BALSAM PERU/CASTOR OIL 60 GM TUBE TOP SCH ×2 (09:17→20:53)
--- NOTE | 2017-01-01 11:45 | PN ---
Date/Time of Note Date/Time of Note DATE: 01/01/17 TIME: 11:45 Assessment/Plan VTE Prophylaxis VTE Prophylaxis Intervention: SCD's Lines/Catheters IV Catheter Type (from Nrsg): Saline Lock Urinary Cath still in place: Yes Reason Cath still needed: terminal illness/intractable pain Assessment/Plan Assessment/Plan 1. UTI - Continue on antibiotics - Cultures pending 2. Acute left hip fracture s/p mechanical fall - Ortho on board and recommendations appreciated. Will need to be on bedrest for 6 weeks and follow up with Dr. Vegas as outpatient for repeat imaging studies - CT scan of pelvis showed "comminuted and minimally displaced fracture involving the left anterior hong and acetabular columns there is also a mildly displaced fracture of the posterior wall and posterior column. There is involvement of the medial acetabular wall as well and articular surface involvement. Displacement is minimal. There are additional fractures involving the left anterior pubic ramus which is comminuted minimally displaced there is also fracture of the takeoff of the left superior pubic ramus near the acetabulum." - bucks traction @ 10 lbs will be setup on patient for L LE per physical therapy - Pain control 3. obstructive nephrolithiasis -urology called, Dr. Liu, 85% chance 2mm stone will pass. Start flomax, continue hydration. -monitor Cr and pain, if worsens, may have to recall urology and urology will consult. -strain urine, broken up stones/sediments found overnight, sending to lab for analysis -repeat imaging with US in 2-3 weeks. 4. DM, controlled - hold PO medications - A1c 6.5 - ISS and accuchecks 5. h/o CVA with residual weakness - will need bedrest for fractures - continue on aspirin 6. GABBI vs GABBI on CKD - nephrology consulted and appreciate recommendations - continue on gentle IV hydration - slight worsening today 7. Left humeral fracture - Left arm in sling - Ortho on board 8. HTN - continue home medications - holding lisinopril due to GABBI, but since resolved, may consider restarting if used for CAD, but at very low dose since BP is stable - 2.5mg lisinopril to restart if stable. 9. BPH 10. Disposition - Once Cr trends downward, will discharge to SNF Subjective 24 Hr Interval Summary Free Text/Dictation Patient doing well and denies any pain. No acute overnight events and no new complaints. Exam/Review of Systems Vital Signs Vitals Vital Signs Date Time Temp Pulse Resp B/P Pulse Ox O2 Delivery O2 Flow Rate FiO2 01/01/17 08:20 Nasal Cannula 2.0 01/01/17 08:18 62 01/01/17 07:56 99.0 18 112/63 94 Intake and Output 12/31/16 12/31/16 01/01/17 15:00 23:00 07:00 Intake Total 50 ml 450 ml 500 ml Output Total 800 ml 1200 ml Balance 50 ml -350 ml -700 ml Exam General: Patient in no acute distress, laying in bed and answers questions Mentation: Patient is alert and oriented to self Head: Normocephalic atraumatic Eyes: EOMI, pupils reactive to light Neck: Supple, nontender, midline Respiratory: Clear to auscultation bilaterally Cardiovascular: regular rate, no obvious murmurs Gastrointestinal: non-tender to palpation, bowel sounds heard. Neurological: Moves all extremities spontaneously, but limited to no movement in L LE given pain with movement Results Result Diagram: 01/01/17 0553 01/01/17 0553 Results 24 hrs Laboratory Tests Test 12/31/16 11:52 12/31/16 17:18 12/31/16 20:09 01/01/17 05:53 Bedside Glucose 155 144 163 White Blood Count 7.5 Red Blood Count 3.89 L Hemoglobin 11.6 L Hematocrit 35.4 L Mean Corpuscular Volume 91.0 Mean Corpuscular Hemoglobin 29.8 Mean Corpuscular Hemoglobin Concent 32.8 Red Cell Distribution Width 12.6 Platelet Count 161 Mean Platelet Volume 9.8 Neutrophils % 57.6 Lymphocytes % 26.3 Monocytes % 8.4 Eosinophils % 6.9 Basophils % 0.4 Nucleated Red Blood Cells % 0.0 Neutrophils # 4.3 Lymphocytes # 2.0 Monocytes # 0.6 Eosinophils # 0.5 Basophils # 0.0 Nucleated Red Blood Cells # 0.0 Sodium Level 138 Potassium Level 4.0 Chloride Level 101 Carbon Dioxide Level 31 Anion Gap 10 Blood Urea Nitrogen 36 H Creatinine 1.44 H Glucose Level 167 Calcium Level 8.7 Phosphorus Level 4.2 Magnesium Level 1.7 Test 01/01/17 07:59 Bedside Glucose 162 Medications Medications Current Medications Cholecalciferol (Vitamin D) 2,000 unit DAILY PO Last administered on 09:16; Admin Dose 2,000 UNIT; Start 12/27/16 at 09:00 Diltiazem HCl (Cardizem Cd) 180 mg DAILY PO Last administered on 01/01/17 09: 16; Admin Dose 180 MG; Start 12/27/16 at 09:00 Dutasteride (Avodart) 0.5 mg DAILY PO Last administered on 01/01/17 09:16; Admin Dose 0.5 MG; Start 12/27/16 at 09:00 Insulin Glargine (Lantus) 10 unit HS SC Last administered on 12/31/16 20:27; Admin Dose 10 UNIT; Start 12/26/16 at 21:00 Miscellaneous Information 1 ea NOTE XX ; Start 12/26/16 at 15:00 Glucose (Glutose) 15 gm Q15M PRN PO DECREASED GLUCOSE; Start 12/26/16 at 15:00 Glucose (Glutose) 22.5 gm Q15M PRN PO DECREASED GLUCOSE; Start 12/26/16 at 15: 00 Dextrose (D50w Syringe) 25 ml Q15M PRN IV DECREASED GLUCOSE; Start 12/26/16 at 15:00 Dextrose (D50w Syringe) 50 ml Q15M PRN IV DECREASED GLUCOSE; Start 12/26/16 at 15:00 Glucagon (Glucagen) 1 mg Q15M PRN IM DECREASED GLUCOSE; Start 12/26/16 at 15:00 Glucose (Glutose) 15 gm Q15M PRN BUCCAL DECREASED GLUCOSE; Start 12/26/16 at 15 :00 Ondansetron HCl (Zofran Inj) 4 mg Q6H PRN IV NAUSEA AND/OR VOMITING Last administered on 12/28/16 12:47; Admin Dose 4 MG; Start 12/26/16 at 15:00 Acetaminophen (Tylenol Tab) 650 mg Q6H PRN PO PAIN LEVEL 1-3 OR FEVER; Start 12/26/16 at 15:00 Acetaminophen/ Hydrocodone Bitart ([place] (5/325)) 1 tab Q6H PRN PO PAIN LEVEL 4 -6 Last administered on 12/31/16 14:56; Admin Dose 1 TAB; Start 12/26/16 at 15 :00 Morphine Sulfate (morphine) 2 mg Q4H PRN IV PAIN LEVEL 7-10 Last administered on 12/28/16 12:46; Admin Dose 2 MG; Start 12/26/16 at 15:00 Docusate Sodium (Colace) 100 mg Q12H PRN PO CONSTIPATION; Start 12/26/16 at 15: 00 Magnesium Hydroxide (Milk Of Mag) 30 ml DAILY PRN PO CONSTIPATION; Start at 15:00 Famotidine (Pepcid) 20 mg DAILY PO Last administered on 01/01/17 09:16; Admin Dose 20 MG; Start 12/26/16 at 16:00 Hydralazine HCl (Apresoline) 10 mg Q6H PRN IV SBP >160; Start 12/26/16 at 15:00 Diagnostic Test (Pha) (Accu-Chek) 1 ea 02 XX Last administered on 12/28/16 02: 44; Admin Dose 1 EA; Start 12/27/16 at 02:00 Polyethylene Glycol 17 gm 17 gm DAILY PRN PO CONSTIPATION; Start 12/28/16 at 10 :30 Sodium Chloride (NS) 1,000 ml @ 40 mls/hr Q24H IV Last administered on 04:45; Admin Dose 40 MLS/HR; Start 12/28/16 at 15:30 Aspirin (Aspirin) 81 mg DAILY PO Last administered on 01/01/17 09:16; Admin Dose 81 MG; Start 12/30/16 at 09:00 Tamsulosin HCl 0.4 mg 0.4 mg HS PO Last administered on 12/31/16 20:25; Admin Dose 0.4 MG; Start 12/29/16 at 21:00 Ceftriaxone Sodium (Rocephin) 50 ml @ 100 mls/hr Q24H IVPB Last administered on 12/31/16 12:38; Admin Dose 100 MLS/HR; Start 12/31/16 at 12:00 JM TINSLEY MD Jan 01, 2017 11:45
[2017-01-01] MEDS: CEFTRIAXONE 1 GM/50 ML (PMX) 50 ML IVPB SCH (12:05)
[2017-01-01] MEDS: MAGNESIUM HYDROXIDE 30ML CUP PO PRN (18:06)
[2017-01-01] MEDS: TAMSULOSIN (SR) 0.4 MG CAP PO SCH (20:48)
[2017-01-01] MEDS: INSULIN GLARGINE [LANtus] 3 ML PEN SC SCH (20:50)
[2017-01-02] VITALS (13 sets, daily range): BP systolic 116–138; BP diastolic 62–77; PULSE 63–91; RESP 17–20
[2017-01-02] MEDS: ACCU-CHEK XX SCH (02:00)
[2017-01-02] MEDS: SOD CHLORIDE 0.9% 1,000 ML IV SCH (04:45)
[2017-01-02] MEDS: ONDANSETRON 4 MG INJ IV PRN (05:13)
[2017-01-02] MEDS: morphine 2 MG INJ IV PRN (05:14)
[2017-01-02 07:25] LABS: ALBUMIN 3.1 g/dl (3.3-4.9); CALCIUM 8.6 mg/dl (8.4-10.2); CREATININE 1.45 mg/dl (0.61-1.24); MAGNESIUM 1.9 mg/dl (1.7-2.5); PHOSPHORUS 4.4 mg/dl (2.5-4.9); POTASSIUM 4.3 mmol/L (3.5-5.1)
[2017-01-02] MEDS: INSULIN ASPART [NOVOLOG] 3 ML PEN SC SCH ×4 (07:47→20:45)
[2017-01-02] MEDS: ASPIRIN 81 MG TAB PO SCH (08:28)
[2017-01-02] MEDS: FAMOTIDINE 20 MG TAB PO SCH (08:29)
[2017-01-02] MEDS: DILTIAZEM (CD) 180 MG CAP PO SCH (08:29)
[2017-01-02] MEDS: CHOLECALCIFEROL 2,000 UNIT CAP PO SCH (08:29)
[2017-01-02] MEDS: BALSAM PERU/CASTOR OIL 60 GM TUBE TOP SCH ×2 (08:29→20:46)
[2017-01-02] MEDS: DUTASTERIDE 0.5 MG CAP PO SCH (09:00)
--- NOTE | 2017-01-02 10:26 | PN ---
Date/Time of Note Date/Time of Note DATE: 01/02/17 TIME: 10:26 Assessment/Plan VTE Prophylaxis VTE Prophylaxis Intervention: SCD's Lines/Catheters IV Catheter Type (from Nrsg): Saline Lock Urinary Cath still in place: Yes Reason Cath still needed: terminal illness/intractable pain Assessment/Plan Assessment/Plan 1. UTI- stable - Continue on antibiotics - Cultures pending - remains afebrile and stable WBC 2. Acute left hip fracture s/p mechanical fall - Ortho on board and recommendations appreciated. Will need to be on bedrest for 6 weeks and follow up with Dr. Vegas as outpatient for repeat imaging studies - CT scan of pelvis showed "comminuted and minimally displaced fracture involving the left anterior hong and acetabular columns there is also a mildly displaced fracture of the posterior wall and posterior column. There is involvement of the medial acetabular wall as well and articular surface involvement. Displacement is minimal. There are additional fractures involving the left anterior pubic ramus which is comminuted minimally displaced there is also fracture of the takeoff of the left superior pubic ramus near the acetabulum." - bucks traction @ 10 lbs will be setup on patient for L LE per physical therapy - Pain control 3. obstructive nephrolithiasis -urology called, Dr. Liu, 85% chance 2mm stone will pass. Start flomax, continue hydration. -monitor Cr and pain, if worsens, may have to recall urology and urology will consult. -strain urine, broken up stones/sediments found overnight, sending to lab for analysis -repeat imaging with US in 2-3 weeks. 4. DM, controlled - hold PO medications - A1c 6.5 - ISS and accuchecks 5. h/o CVA with residual weakness - will need bedrest for fractures - continue on aspirin 6. GABBI vs GABBI on CKD - nephrology consulted and appreciate recommendations - continue on gentle IV hydration - stable 7. Left humeral fracture - Left arm in sling - Ortho on board 8. HTN - continue home medications - holding lisinopril due to GABBI, but since resolved, may consider restarting if used for CAD, but at very low dose since BP is stable - 2.5mg lisinopril to restart if stable. 9. BPH 10. Disposition - Once renal function stable, will discharge to SNF Subjective 24 Hr Interval Summary Free Text/Dictation Patient doing well and no new complaints. Asking for extra coffee this am. No acute overnight events. Exam/Review of Systems Vital Signs Vitals Vital Signs Date Time Temp Pulse Resp B/P Pulse Ox O2 Delivery O2 Flow Rate FiO2 01/02/17 08:10 Nasal Cannula 2.0 01/02/17 08:01 97.3 86 17 116/70 93 Intake and Output 01/01/17 01/01/17 01/02/17 15:00 23:00 07:00 Intake Total 50 ml 380 ml 500 ml Output Total 1200 ml 800 ml Balance 50 ml -820 ml -300 ml Exam General: Patient in no acute distress, laying in bed and answers questions Mentation: Patient is alert and oriented to self Head: Normocephalic atraumatic Eyes: EOMI, pupils reactive to light Neck: Supple, nontender, midline Respiratory: Clear to auscultation bilaterally Cardiovascular: regular rate, no obvious murmurs Gastrointestinal: non-tender to palpation, bowel sounds heard. Neurological: Moves all extremities spontaneously, but limited to no movement in L LE given pain with movement Results Result Diagram: 01/01/17 0553 01/02/17 0550 Results 24 hrs Laboratory Tests Test 01/01/17 11:56 01/01/17 17:21 01/01/17 20:46 01/02/17 02:51 Bedside Glucose 194 160 184 157 Test 01/02/17 05:50 01/02/17 07:46 Sodium Level 141 Potassium Level 4.3 Chloride Level 102 Carbon Dioxide Level 28 Anion Gap 15 Blood Urea Nitrogen 38 H Creatinine 1.45 H Glucose Level 148 Calcium Level 8.6 Phosphorus Level 4.4 Magnesium Level 1.9 Albumin 3.1 L Bedside Glucose 153 Medications Medications Current Medications Cholecalciferol (Vitamin D) 2,000 unit DAILY PO Last administered on 08:29; Admin Dose 2,000 UNIT; Start 12/27/16 at 09:00 Diltiazem HCl (Cardizem Cd) 180 mg DAILY PO Last administered on 01/02/17 08: 29; Admin Dose 180 MG; Start 12/27/16 at 09:00 Dutasteride (Avodart) 0.5 mg DAILY PO Last administered on 01/01/17 09:16; Admin Dose 0.5 MG; Start 12/27/16 at 09:00 Insulin Glargine (Lantus) 10 unit HS SC Last administered on 01/01/17 20:50; Admin Dose 10 UNIT; Start 12/26/16 at 21:00 Miscellaneous Information 1 ea NOTE XX ; Start 12/26/16 at 15:00 Glucose (Glutose) 15 gm Q15M PRN PO DECREASED GLUCOSE; Start 12/26/16 at 15:00 Glucose (Glutose) 22.5 gm Q15M PRN PO DECREASED GLUCOSE; Start 12/26/16 at 15: 00 Dextrose (D50w Syringe) 25 ml Q15M PRN IV DECREASED GLUCOSE; Start 12/26/16 at 15:00 Dextrose (D50w Syringe) 50 ml Q15M PRN IV DECREASED GLUCOSE; Start 12/26/16 at 15:00 Glucagon (Glucagen) 1 mg Q15M PRN IM DECREASED GLUCOSE; Start 12/26/16 at 15:00 Glucose (Glutose) 15 gm Q15M PRN BUCCAL DECREASED GLUCOSE; Start 12/26/16 at 15 :00 Ondansetron HCl (Zofran Inj) 4 mg Q6H PRN IV NAUSEA AND/OR VOMITING Last administered on 01/02/17 05:13; Admin Dose 4 MG; Start 12/26/16 at 15:00 Acetaminophen (Tylenol Tab) 650 mg Q6H PRN PO PAIN LEVEL 1-3 OR FEVER; Start 12/26/16 at 15:00 Acetaminophen/ Hydrocodone Bitart ([place] (5/325)) 1 tab Q6H PRN PO PAIN LEVEL 4 -6 Last administered on 12/31/16 14:56; Admin Dose 1 TAB; Start 12/26/16 at 15 :00 Morphine Sulfate (morphine) 2 mg Q4H PRN IV PAIN LEVEL 7-10 Last administered on 01/02/17 05:14; Admin Dose 2 MG; Start 12/26/16 at 15:00 Docusate Sodium (Colace) 100 mg Q12H PRN PO CONSTIPATION; Start 12/26/16 at 15: 00 Magnesium Hydroxide (Milk Of Mag) 30 ml DAILY PRN PO CONSTIPATION Last administered on 01/01/17 18:06; Admin Dose 30 ML; Start 12/26/16 at 15:00 Famotidine (Pepcid) 20 mg DAILY PO Last administered on 01/02/17 08:29; Admin Dose 20 MG; Start 12/26/16 at 16:00 Hydralazine HCl (Apresoline) 10 mg Q6H PRN IV SBP >160; Start 12/26/16 at 15:00 Diagnostic Test (Pha) (Accu-Chek) 1 ea 02 XX Last administered on 12/28/16 02: 44; Admin Dose 1 EA; Start 12/27/16 at 02:00 Polyethylene Glycol 17 gm 17 gm DAILY PRN PO CONSTIPATION; Start 12/28/16 at 10 :30 Sodium Chloride (NS) 1,000 ml @ 40 mls/hr Q24H IV Last administered on 04:45; Admin Dose 40 MLS/HR; Start 12/28/16 at 15:30 Aspirin (Aspirin) 81 mg DAILY PO Last administered on 01/02/17 08:28; Admin Dose 81 MG; Start 12/30/16 at 09:00 Tamsulosin HCl 0.4 mg 0.4 mg HS PO Last administered on 01/01/17 20:48; Admin Dose 0.4 MG; Start 12/29/16 at 21:00 Ceftriaxone Sodium (Rocephin) 50 ml @ 100 mls/hr Q24H IVPB Last administered on 01/01/17 12:05; Admin Dose 100 MLS/HR; Start 12/31/16 at 12:00 JM TINSLEY MD Jan 02, 2017 10:26
[2017-01-02] MEDS: CEFTRIAXONE 1 GM/50 ML (PMX) 50 ML IVPB SCH (11:43)
--- NOTE | 2017-01-02 12:11 | CONS ---
Date/Time of Note Date/Time of Note DATE: 01/02/17 TIME: 12:10 Consult Date/Type/Reason Admit Date/Time Dec 26, 2016 at 13:52 Ordering Provider: MONIKA CHRISTINA MD Subjective The patient is stable. No events overnight. No fevers, chills, nausea, vomiting, no shortness of breath. continues good uo. co hip and shoulder pain. treated reasonably with meds. poc reviewed with dr. mcdaniel, OBJECTIVE: HEENT: Head is normocephalic. NECK: Supple. HEART: Regular rate. LUNGS: Show diminished breath sounds at the base. ABDOMEN: Soft, nontender to palpation. No rebound or guarding. EXTREMITIES: Negative for clubbing, cyanosis. No edema. DERMATOLOGIC: No rashes. MUSCULOSKELETAL: No joint effusions. NEUROLOGIC: No change in exam. MEDICATIONS: The patient's medications have been reviewed. Objective Vital Signs Date Time Temp Pulse Resp B/P Pulse Ox O2 Delivery O2 Flow Rate FiO2 01/02/17 11:57 98.5 87 17 126/71 91 01/02/17 08:10 Nasal Cannula 2.0 Intake and Output 01/01/17 01/01/17 01/02/17 15:00 23:00 07:00 Intake Total 50 ml 380 ml 500 ml Output Total 1200 ml 800 ml Balance 50 ml -820 ml -300 ml Results/Medications Result Diagram: 01/01/17 0553 01/02/17 0550 Results 24 hrs Laboratory Tests Test 01/01/17 17:21 01/01/17 20:46 01/02/17 02:51 01/02/17 05:50 Bedside Glucose 160 184 157 Sodium Level 141 Potassium Level 4.3 Chloride Level 102 Carbon Dioxide Level 28 Anion Gap 15 Blood Urea Nitrogen 38 H Creatinine 1.45 H Glucose Level 148 Calcium Level 8.6 Phosphorus Level 4.4 Magnesium Level 1.9 Albumin 3.1 L Test 01/02/17 07:46 01/02/17 11:47 Bedside Glucose 153 179 Medications Current Medications Cholecalciferol (Vitamin D) 2,000 unit DAILY PO Last administered on 08:29; Admin Dose 2,000 UNIT; Start 12/27/16 at 09:00 Diltiazem HCl (Cardizem Cd) 180 mg DAILY PO Last administered on 01/02/17 08: 29; Admin Dose 180 MG; Start 12/27/16 at 09:00 Dutasteride (Avodart) 0.5 mg DAILY PO Last administered on 01/02/17 09:00; Admin Dose 0.5 MG; Start 12/27/16 at 09:00 Insulin Glargine (Lantus) 10 unit HS SC Last administered on 01/01/17 20:50; Admin Dose 10 UNIT; Start 12/26/16 at 21:00 Miscellaneous Information 1 ea NOTE XX ; Start 12/26/16 at 15:00 Glucose (Glutose) 15 gm Q15M PRN PO DECREASED GLUCOSE; Start 12/26/16 at 15:00 Glucose (Glutose) 22.5 gm Q15M PRN PO DECREASED GLUCOSE; Start 12/26/16 at 15: 00 Dextrose (D50w Syringe) 25 ml Q15M PRN IV DECREASED GLUCOSE; Start 12/26/16 at 15:00 Dextrose (D50w Syringe) 50 ml Q15M PRN IV DECREASED GLUCOSE; Start 12/26/16 at 15:00 Glucagon (Glucagen) 1 mg Q15M PRN IM DECREASED GLUCOSE; Start 12/26/16 at 15:00 Glucose (Glutose) 15 gm Q15M PRN BUCCAL DECREASED GLUCOSE; Start 12/26/16 at 15 :00 Ondansetron HCl (Zofran Inj) 4 mg Q6H PRN IV NAUSEA AND/OR VOMITING Last administered on 01/02/17 05:13; Admin Dose 4 MG; Start 12/26/16 at 15:00 Acetaminophen (Tylenol Tab) 650 mg Q6H PRN PO PAIN LEVEL 1-3 OR FEVER; Start 12/26/16 at 15:00 Acetaminophen/ Hydrocodone Bitart ([place] (5/325)) 1 tab Q6H PRN PO PAIN LEVEL 4 -6 Last administered on 12/31/16 14:56; Admin Dose 1 TAB; Start 12/26/16 at 15 :00 Morphine Sulfate (morphine) 2 mg Q4H PRN IV PAIN LEVEL 7-10 Last administered on 01/02/17 05:14; Admin Dose 2 MG; Start 12/26/16 at 15:00 Docusate Sodium (Colace) 100 mg Q12H PRN PO CONSTIPATION; Start 12/26/16 at 15: 00 Magnesium Hydroxide (Milk Of Mag) 30 ml DAILY PRN PO CONSTIPATION Last administered on 01/01/17 18:06; Admin Dose 30 ML; Start 12/26/16 at 15:00 Famotidine (Pepcid) 20 mg DAILY PO Last administered on 01/02/17 08:29; Admin Dose 20 MG; Start 12/26/16 at 16:00 Hydralazine HCl (Apresoline) 10 mg Q6H PRN IV SBP >160; Start 12/26/16 at 15:00 Diagnostic Test (Pha) (Accu-Chek) 1 ea 02 XX Last administered on 12/28/16 02: 44; Admin Dose 1 EA; Start 12/27/16 at 02:00 Polyethylene Glycol 17 gm 17 gm DAILY PRN PO CONSTIPATION; Start 12/28/16 at 10 :30 Sodium Chloride (NS) 1,000 ml @ 40 mls/hr Q24H IV Last administered on 04:45; Admin Dose 40 MLS/HR; Start 12/28/16 at 15:30 Aspirin (Aspirin) 81 mg DAILY PO Last administered on 01/02/17 08:28; Admin Dose 81 MG; Start 12/30/16 at 09:00 Tamsulosin HCl 0.4 mg 0.4 mg HS PO Last administered on 01/01/17 20:48; Admin Dose 0.4 MG; Start 12/29/16 at 21:00 Ceftriaxone Sodium (Rocephin) 50 ml @ 100 mls/hr Q24H IVPB Last administered on 01/02/17 11:43; Admin Dose 100 MLS/HR; Start 12/31/16 at 12:00 Assessment/Plan Chief Complaint/Hosp Course 1. Nonoliguric acute kidney injury on top of chronic kidney disease with previous baseline creatinine of 1.12 mg/dL. Etiology of acute kidney injury was multifactorial secondary to possible obstructive uropathy, FLORA inhibitor effect, hemodynamics. The patient's renal function has been improving. At this point, will continue current treatment plan, supportive care, renally dose all meds. watch for diuretic phase of lin with electrolyte wasting. 2. Left hydroureteronephrosis due to nephrolithiasis. The patient clinically improving. Continue gentle hydration. Continue to strain urine. Follow up with urology. The patient has been started on Flomax and will continue. 3. Anemia. Monitor hemoglobin and hematocrit levels. 4. Mineral bone disorder. Continue to monitor calcium and phosphorus levels. 5. Hypertension. Continue current blood pressure regimen. 6. Left acetabular fracture secondary to fall. Continue medical management. 7. Diabetes. Continue current insulin regimen. 8. History of cerebrovascular accident. Problems: MIGUEL ELIZABETH MD Jan 02, 2017 12:11
[2017-01-02] MEDS: TAMSULOSIN (SR) 0.4 MG CAP PO SCH (20:43)
[2017-01-02] MEDS: INSULIN GLARGINE [LANtus] 3 ML PEN SC SCH (20:44)
[2017-01-03] VITALS (12 sets, daily range): BP systolic 114–134; BP diastolic 61–81; PULSE 60–87; RESP 17–19
[2017-01-03] MEDS: ACCU-CHEK XX SCH (02:00)
[2017-01-03] MEDS: SOD CHLORIDE 0.9% 1,000 ML IV SCH (05:38)
--- NOTE | 2017-01-03 08:50 | PN ---
DATE: 01/03/2017 SUBJECTIVE: The patient is stable. No events overnight. No fevers, chills, nausea, vomiting. OBJECTIVE: VITAL SIGNS: Blood pressure is 134/74, pulse 83, temperature 97.4, respirations 19. HEENT: Head is normocephalic. NECK: Supple. HEART: Regular rate. LUNGS: Show diminished breath sounds at the base. ABDOMEN: Soft, nontender to palpation. No rebound or guarding. EXTREMITIES: Negative for clubbing, cyanosis, no edema. DERMATOLOGIC: No rashes. MUSCULOSKELETAL: No joint effusions. NEUROLOGIC: No change in exam. MEDICATIONS: The patient's medications have been reviewed. LABORATORY DATA: Has been reviewed. No new labs. ASSESSMENT AND PLAN: 1. Nonoliguric acute kidney injury on top of chronic kidney disease with previous baseline creatini ne of 1.1 subjectively. Etiology of acute kidney injury is multifactorial secondary to possible obs tructive uropathy, FLORA inhibitor effect. The patient's renal function has been fluctuating but crea tinine appears to be stabilizing around 1.4 mg/dL. At this point, continue current treatment plan a nd monitor renal function. 2. Left hydroureteronephrosis due to nephrolithiasis. The patient is status post Saini catheter. Continue to monitor. Follow up with urology. 3. Anemia. Monitor hemoglobin and hematocrit levels. 4. Mineral bone disorder. Monitor calcium and phosphorus levels. 5. Hypertension. Continue current blood pressure regimen. 6. Left acetabular fracture secondary to fall. Continue current treatment plan. 7. Diabetes. Continue current insulin regimen. 8. History of cerebrovascular accident. Dictated By: DOMINIC MUÑOZ/ANTONI Conf#: [id number] DID#: [id number]
[2017-01-03] MEDS: ASPIRIN 81 MG TAB PO SCH (08:51)
[2017-01-03] MEDS: BALSAM PERU/CASTOR OIL 60 GM TUBE TOP SCH ×2 (08:52→21:03)
[2017-01-03] MEDS: CHOLECALCIFEROL 2,000 UNIT CAP PO SCH (08:52)
[2017-01-03] MEDS: FAMOTIDINE 20 MG TAB PO SCH (08:52)
[2017-01-03] MEDS: INSULIN ASPART [NOVOLOG] 3 ML PEN SC SCH ×4 (08:57→20:58)
[2017-01-03] MEDS: DILTIAZEM (CD) 180 MG CAP PO SCH ×2 (09:00→16:58)
[2017-01-03] MEDS: DUTASTERIDE 0.5 MG CAP PO SCH ×2 (09:00→16:57)
[2017-01-03 11:39] LABS: ALBUMIN 3.4 g/dl (3.3-4.9); CALCIUM 8.7 mg/dl (8.4-10.2); CREATININE 1.37 mg/dl (0.61-1.24); MAGNESIUM 2.1 mg/dl (1.7-2.5); PHOSPHORUS 4.2 mg/dl (2.5-4.9); POTASSIUM 4.8 mmol/L (3.5-5.1)
[2017-01-03] MEDS: CEFTRIAXONE 1 GM/50 ML (PMX) 50 ML IVPB SCH (12:22)
--- NOTE | 2017-01-03 14:42 | PN ---
Date/Time of Note Date/Time of Note DATE: 01/03/17 TIME: 14:37 Assessment/Plan VTE Prophylaxis VTE Prophylaxis Intervention: SCD's Lines/Catheters IV Catheter Type (from Nrsg): Saline Lock Urinary Cath still in place: Yes Reason Cath still needed: terminal illness/intractable pain Assessment/Plan Assessment/Plan 1. UTI- stable - Continue on antibiotics until tomorrow - remains afebrile and stable WBC 2. Acute left hip fracture s/p mechanical fall - Ortho on board and recommendations appreciated. Will need to be on bedrest for 6 weeks and follow up with Dr. Vegas as outpatient for repeat imaging studies - CT scan of pelvis showed "comminuted and minimally displaced fracture involving the left anterior hong and acetabular columns there is also a mildly displaced fracture of the posterior wall and posterior column. There is involvement of the medial acetabular wall as well and articular surface involvement. Displacement is minimal. There are additional fractures involving the left anterior pubic ramus which is comminuted minimally displaced there is also fracture of the takeoff of the left superior pubic ramus near the acetabulum." - bucks traction @ 10 lbs will be setup on patient for L LE per physical therapy - Pain control 3. obstructive nephrolithiasis -urology called, Dr. Liu, 85% chance 2mm stone will pass. Start flomax, continue hydration. -monitor Cr and pain, if worsens, may have to recall urology and urology will consult. -strain urine, broken up stones/sediments found overnight, sending to lab for analysis -repeat imaging with US in 2-3 weeks. 4. DM, controlled - hold PO medications - A1c 6.5 - ISS and accuchecks 5. h/o CVA with residual weakness - continue on aspirin 6. GABBI vs GABBI on CKD - nephrology consulted and appreciate recommendations - continue on gentle IV hydration - stable, creatinine trending downward 7. Left humeral fracture - Left arm in sling - Ortho on board 8. HTN - continue home medications - holding lisinopril due to GABBI, but since resolved, may consider restarting if used for CAD, but at very low dose since BP is stable - 2.5mg lisinopril to restart if stable. 9. BPH 10. Disposition - Once renal function at baseline, will discharge to SNF Subjective 24 Hr Interval Summary Free Text/Dictation Patient resting comfortably in no acute distress. No overnight events. Exam/Review of Systems Vital Signs Vitals Vital Signs Date Time Temp Pulse Resp B/P Pulse Ox O2 Delivery O2 Flow Rate FiO2 01/03/17 12:20 77 01/03/17 12:00 Nasal Cannula 01/03/17 11:35 96.7 18 126/78 91 01/02/17 20:00 2.0 Intake and Output 01/02/17 01/02/17 01/03/17 14:59 22:59 06:59 Intake Total 800 ml 300 ml Output Total 900 ml 1400 ml Balance -100 ml -1100 ml Exam General: Patient in no acute distress, laying in bed and answers questions Mentation: Patient is alert and oriented to self Head: Normocephalic atraumatic Eyes: EOMI, pupils reactive to light Neck: Supple, nontender, midline Respiratory: Clear to auscultation bilaterally, diminished at bases, no wheezing or rhonchi. Cardiovascular: regular rate, no obvious murmurs Gastrointestinal: non-tender to palpation, bowel sounds heard. Neurological: Moves all extremities spontaneously, but limited to no movement in LLE Results Result Diagram: 01/01/17 0553 01/03/17 1052 Results 24 hrs Laboratory Tests Test 01/02/17 17:19 01/02/17 20:41 01/03/17 02:44 01/03/17 08:20 Bedside Glucose 189 186 146 220 Test 01/03/17 10:52 01/03/17 11:56 Sodium Level 139 Potassium Level 4.8 Chloride Level 102 Carbon Dioxide Level 27 Anion Gap 15 Blood Urea Nitrogen 40 H Creatinine 1.37 H Glucose Level 201 Calcium Level 8.7 Phosphorus Level 4.2 Magnesium Level 2.1 Albumin 3.4 Bedside Glucose 172 Medications Medications Current Medications Cholecalciferol (Vitamin D) 2,000 unit DAILY PO Last administered on 08:52; Admin Dose 2,000 UNIT; Start 12/27/16 at 09:00 Diltiazem HCl (Cardizem Cd) 180 mg DAILY PO Last administered on 01/02/17 08: 29; Admin Dose 180 MG; Start 12/27/16 at 09:00 Dutasteride (Avodart) 0.5 mg DAILY PO Last administered on 01/02/17 09:00; Admin Dose 0.5 MG; Start 12/27/16 at 09:00 Insulin Glargine (Lantus) 10 unit HS SC Last administered on 01/02/17 20:44; Admin Dose 10 UNIT; Start 12/26/16 at 21:00 Miscellaneous Information 1 ea NOTE XX ; Start 12/26/16 at 15:00 Glucose (Glutose) 15 gm Q15M PRN PO DECREASED GLUCOSE; Start 12/26/16 at 15:00 Glucose (Glutose) 22.5 gm Q15M PRN PO DECREASED GLUCOSE; Start 12/26/16 at 15: 00 Dextrose (D50w Syringe) 25 ml Q15M PRN IV DECREASED GLUCOSE; Start 12/26/16 at 15:00 Dextrose (D50w Syringe) 50 ml Q15M PRN IV DECREASED GLUCOSE; Start 12/26/16 at 15:00 Glucagon (Glucagen) 1 mg Q15M PRN IM DECREASED GLUCOSE; Start 12/26/16 at 15:00 Glucose (Glutose) 15 gm Q15M PRN BUCCAL DECREASED GLUCOSE; Start 12/26/16 at 15 :00 Ondansetron HCl (Zofran Inj) 4 mg Q6H PRN IV NAUSEA AND/OR VOMITING Last administered on 01/02/17 05:13; Admin Dose 4 MG; Start 12/26/16 at 15:00 Acetaminophen (Tylenol Tab) 650 mg Q6H PRN PO PAIN LEVEL 1-3 OR FEVER; Start 12/26/16 at 15:00 Acetaminophen/ Hydrocodone Bitart ([place] (5/325)) 1 tab Q6H PRN PO PAIN LEVEL 4 -6 Last administered on 12/31/16 14:56; Admin Dose 1 TAB; Start 12/26/16 at 15 :00 Morphine Sulfate (morphine) 2 mg Q4H PRN IV PAIN LEVEL 7-10 Last administered on 01/02/17 05:14; Admin Dose 2 MG; Start 12/26/16 at 15:00 Docusate Sodium (Colace) 100 mg Q12H PRN PO CONSTIPATION; Start 12/26/16 at 15: 00 Magnesium Hydroxide (Milk Of Mag) 30 ml DAILY PRN PO CONSTIPATION Last administered on 01/01/17 18:06; Admin Dose 30 ML; Start 12/26/16 at 15:00 Famotidine (Pepcid) 20 mg DAILY PO Last administered on 01/03/17 08:52; Admin Dose 20 MG; Start 12/26/16 at 16:00 Hydralazine HCl (Apresoline) 10 mg Q6H PRN IV SBP >160; Start 12/26/16 at 15:00 Diagnostic Test (Pha) (Accu-Chek) 1 ea 02 XX Last administered on 12/28/16 02: 44; Admin Dose 1 EA; Start 12/27/16 at 02:00 Polyethylene Glycol 17 gm 17 gm DAILY PRN PO CONSTIPATION; Start 12/28/16 at 10 :30 Sodium Chloride (NS) 1,000 ml @ 40 mls/hr Q24H IV Last administered on 05:38; Admin Dose 40 MLS/HR; Start 12/28/16 at 15:30 Aspirin (Aspirin) 81 mg DAILY PO Last administered on 01/03/17 08:51; Admin Dose 81 MG; Start 12/30/16 at 09:00 Tamsulosin HCl 0.4 mg 0.4 mg HS PO Last administered on 01/02/17 20:43; Admin Dose 0.4 MG; Start 12/29/16 at 21:00 Ceftriaxone Sodium (Rocephin) 50 ml @ 100 mls/hr Q24H IVPB Last administered on 01/03/17 12:22; Admin Dose 100 MLS/HR; Start 12/31/16 at 12:00 JM TINSLEY MD Jan 03, 2017 14:42
[2017-01-03] MEDS: TAMSULOSIN (SR) 0.4 MG CAP PO SCH (20:56)
[2017-01-03] MEDS: INSULIN GLARGINE [LANtus] 3 ML PEN SC SCH (20:59)
[2017-01-04] VITALS (12 sets, daily range): BP systolic 111–144; BP diastolic 61–74; PULSE 62–71; RESP 18–19
[2017-01-04] MEDS: ACCU-CHEK XX SCH (02:00)
[2017-01-04] MEDS: SOD CHLORIDE 0.9% 1,000 ML IV SCH (05:47)
[2017-01-04] MEDS: HYDROCODONE/APAP (5/325) TAB PO PRN (05:47)
[2017-01-04] MEDS: MAGNESIUM HYDROXIDE 30ML CUP PO PRN (05:48)
[2017-01-04 07:49] LABS: ALBUMIN 3.1 g/dl (3.3-4.9); CALCIUM 8.5 mg/dl (8.4-10.2); CREATININE 1.41 mg/dl (0.61-1.24); MAGNESIUM 1.9 mg/dl (1.7-2.5); PHOSPHORUS 4.2 mg/dl (2.5-4.9); POTASSIUM 4.3 mmol/L (3.5-5.1)
[2017-01-04] MEDS: INSULIN ASPART [NOVOLOG] 3 ML PEN SC SCH ×4 (08:00→20:43)
[2017-01-04] MEDS: DUTASTERIDE 0.5 MG CAP PO SCH (08:57)
[2017-01-04] MEDS: ASPIRIN 81 MG TAB PO SCH (08:58)
[2017-01-04] MEDS: CHOLECALCIFEROL 2,000 UNIT CAP PO SCH (08:58)
[2017-01-04] MEDS: FAMOTIDINE 20 MG TAB PO SCH (08:58)
[2017-01-04] MEDS: DILTIAZEM (CD) 180 MG CAP PO SCH (08:58)
[2017-01-04] MEDS: BALSAM PERU/CASTOR OIL 60 GM TUBE TOP SCH ×2 (08:59→20:39)
--- NOTE | 2017-01-04 09:05 | PN ---
DATE: 01/04/2017 SUBJECTIVE: The patient is stable. No events overnight. No fevers, chills, nausea, vomiting. OBJECTIVE: VITAL SIGNS: Blood pressure is 115/61, temperature 97.8, pulse 63, respiration 19. HEENT: Head is normocephalic. NECK: Supple. HEART: Regular rate. LUNGS: Show diminished breath sounds at the base. ABDOMEN: Soft, nontender to palpation. No rebound or guarding. EXTREMITIES: Negative for clubbing, cyanosis, no edema. DERMATOLOGIC: No rashes. MUSCULOSKELETAL: No joint effusions. NEUROLOGIC: No change in exam. MEDICATIONS: The patient's medications have been reviewed. LABORATORY DATA: Shows sodium 139, potassium 4.3, BUN 39, creatinine 1.4. ASSESSMENT AND PLAN: 1. Nonoliguric acute kidney injury on top of chronic kidney disease with previous baseline creatini ne around 1.2 to 1.3 mg/dL. Etiology of current acute kidney injury is secondary to obstructive uro dwight, FLORA inhibitor effect. The patient's renal function appears to have stabilized. Creatinine 1 .4 mg/dL. At this point, will continue current treatment plan, supportive care, renally dose all me ds. 2. Left hydroureteronephrosis. The patient is status post Saini catheter. Continue to monitor. F ollow up with urology. 3. Anemia. Monitor hemoglobin and hematocrit levels. 4. Mineral bone disorder. Monitor calcium and phosphorus levels. 5. Hypertension. Continue current blood pressure regimen. 6. Left acetabular fracture secondary to fall. Continue current treatment plan. 7. Diabetes. Continue Accu-Cheks, insulin sliding scale. 8. History of cerebrovascular accident. Dictated By: DOMINIC MUÑOZ/ANTONI Conf#: [id number] DID#: [id number]
[2017-01-04] MEDS: CEFTRIAXONE 1 GM/50 ML (PMX) 50 ML IVPB SCH (11:47)
--- NOTE | 2017-01-04 14:17 | PN ---
Date/Time of Note Date/Time of Note DATE: 01/04/17 TIME: 14:12 Assessment/Plan VTE Prophylaxis VTE Prophylaxis Intervention: SCD's Lines/Catheters IV Catheter Type (from Nrsg): Peripheral IV Urinary Cath still in place: Yes Reason Cath still needed: terminal illness/intractable pain Assessment/Plan Assessment/Plan 1. UTI- stable - Awaiting cultures. continue on antibiotics - remains afebrile and stable WBC 2. Acute left hip fracture s/p mechanical fall- stable - Ortho on board and recommendations appreciated. Will need to be on bedrest for 6 weeks and follow up with Dr. Vegas as outpatient for repeat imaging studies - CT scan of pelvis showed "comminuted and minimally displaced fracture involving the left anterior hong and acetabular columns there is also a mildly displaced fracture of the posterior wall and posterior column. There is involvement of the medial acetabular wall as well and articular surface involvement. Displacement is minimal. There are additional fractures involving the left anterior pubic ramus which is comminuted minimally displaced there is also fracture of the takeoff of the left superior pubic ramus near the acetabulum." - bucks traction @ 10 lbs - Pain control 3. obstructive nephrolithiasis -urology called, Dr. Liu, 85% chance 2mm stone will pass. Start flomax, continue hydration. -monitor Cr and pain, if worsens, may have to recall urology and urology will consult. -strain urine, broken up stones/sediments found overnight, sending to lab for analysis -repeat imaging with US in 2-3 weeks. 4. DM, controlled - hold PO medications - A1c 6.5 - ISS and accuchecks 5. h/o CVA with residual weakness - continue on aspirin 6. GABBI on CKD - nephrology consulted and appreciate recommendations. Baseline Cr 1.2-1.3 - continue on gentle IV hydration and supportive care - Cr 1.4 today 7. Left humeral fracture - Left arm in sling and will need to be immobilized for 4 weeks - Ortho on board 8. HTN - Stable - continue home medications - holding lisinopril due to GABBI, but since resolved, may consider restarting if used for CAD, but at very low dose since BP is stable - 2.5mg lisinopril to restart if stable. 9. BPH 10. Disposition - Once renal function at baseline, will discharge to SNF Subjective 24 Hr Interval Summary Free Text/Dictation Patient doing well and has no new complaints. Anxious to get out of the hospital but understands kidney function needs to return to baseline prior to discharge. Exam/Review of Systems Vital Signs Vitals Vital Signs Date Time Temp Pulse Resp B/P Pulse Ox O2 Delivery O2 Flow Rate FiO2 01/04/17 12:00 65 01/04/17 11:37 98.5 19 144/69 95 01/04/17 08:00 Nasal Cannula 2.0 Intake and Output 01/03/17 01/03/17 01/04/17 15:00 23:00 07:00 Intake Total 50 ml 1240 ml 250 ml Output Total 1100 ml 1250 ml Balance 50 ml 140 ml -1000 ml Exam General: Patient in no acute distress, laying in bed and answers questions Mentation: Patient is alert and oriented to self Head: Normocephalic atraumatic Eyes: EOMI, pupils reactive to light Neck: Supple, nontender, midline Respiratory: Clear to auscultation bilaterally, diminished at bases, no wheezing or rhonchi. Cardiovascular: regular rate, no obvious murmurs Gastrointestinal: non-tender to palpation, bowel sounds heard. Extremity- LLE in [place] traction with 10lb weight Results Result Diagram: 01/01/17 0553 01/04/17 0706 Results 24 hrs Laboratory Tests Test 01/03/17 17:24 01/03/17 20:55 01/04/17 02:24 01/04/17 07:06 Bedside Glucose 153 257 H 142 Sodium Level 139 Potassium Level 4.3 Chloride Level 103 Carbon Dioxide Level 28 Anion Gap 12 Blood Urea Nitrogen 39 H Creatinine 1.41 H Glucose Level 130 # Calcium Level 8.5 Phosphorus Level 4.2 Magnesium Level 1.9 Albumin 3.1 L Test 01/04/17 08:44 01/04/17 11:45 Bedside Glucose 122 167 Medications Medications Current Medications Cholecalciferol (Vitamin D) 2,000 unit DAILY PO Last administered on 08:58; Admin Dose 2,000 UNIT; Start 12/27/16 at 09:00 Diltiazem HCl (Cardizem Cd) 180 mg DAILY PO Last administered on 01/04/17 08: 58; Admin Dose 180 MG; Start 12/27/16 at 09:00 Dutasteride (Avodart) 0.5 mg DAILY PO Last administered on 01/04/17 08:57; Admin Dose 0.5 MG; Start 12/27/16 at 09:00 Insulin Glargine (Lantus) 10 unit HS SC Last administered on 01/03/17 20:59; Admin Dose 10 UNIT; Start 12/26/16 at 21:00 Miscellaneous Information 1 ea NOTE XX ; Start 12/26/16 at 15:00 Glucose (Glutose) 15 gm Q15M PRN PO DECREASED GLUCOSE; Start 12/26/16 at 15:00 Glucose (Glutose) 22.5 gm Q15M PRN PO DECREASED GLUCOSE; Start 12/26/16 at 15: 00 Dextrose (D50w Syringe) 25 ml Q15M PRN IV DECREASED GLUCOSE; Start 12/26/16 at 15:00 Dextrose (D50w Syringe) 50 ml Q15M PRN IV DECREASED GLUCOSE; Start 12/26/16 at 15:00 Glucagon (Glucagen) 1 mg Q15M PRN IM DECREASED GLUCOSE; Start 12/26/16 at 15:00 Glucose (Glutose) 15 gm Q15M PRN BUCCAL DECREASED GLUCOSE; Start 12/26/16 at 15 :00 Ondansetron HCl (Zofran Inj) 4 mg Q6H PRN IV NAUSEA AND/OR VOMITING Last administered on 01/02/17 05:13; Admin Dose 4 MG; Start 12/26/16 at 15:00 Acetaminophen (Tylenol Tab) 650 mg Q6H PRN PO PAIN LEVEL 1-3 OR FEVER; Start 12/26/16 at 15:00 Acetaminophen/ Hydrocodone Bitart ([place] (5/325)) 1 tab Q6H PRN PO PAIN LEVEL 4 -6 Last administered on 01/04/17 05:47; Admin Dose 1 TAB; Start 12/26/16 at 15 :00 Morphine Sulfate (morphine) 2 mg Q4H PRN IV PAIN LEVEL 7-10 Last administered on 01/02/17 05:14; Admin Dose 2 MG; Start 12/26/16 at 15:00 Docusate Sodium (Colace) 100 mg Q12H PRN PO CONSTIPATION; Start 12/26/16 at 15: 00 Magnesium Hydroxide (Milk Of Mag) 30 ml DAILY PRN PO CONSTIPATION Last administered on 01/04/17 05:48; Admin Dose 30 ML; Start 12/26/16 at 15:00 Famotidine (Pepcid) 20 mg DAILY PO Last administered on 01/04/17 08:58; Admin Dose 20 MG; Start 12/26/16 at 16:00 Hydralazine HCl (Apresoline) 10 mg Q6H PRN IV SBP >160; Start 12/26/16 at 15:00 Diagnostic Test (Pha) (Accu-Chek) 1 ea 02 XX Last administered on 12/28/16 02: 44; Admin Dose 1 EA; Start 12/27/16 at 02:00 Polyethylene Glycol 17 gm 17 gm DAILY PRN PO CONSTIPATION; Start 12/28/16 at 10 :30 Sodium Chloride (NS) 1,000 ml @ 40 mls/hr Q24H IV Last administered on 05:47; Admin Dose 40 MLS/HR; Start 12/28/16 at 15:30 Aspirin (Aspirin) 81 mg DAILY PO Last administered on 01/04/17 08:58; Admin Dose 81 MG; Start 12/30/16 at 09:00 Tamsulosin HCl 0.4 mg 0.4 mg HS PO Last administered on 01/03/17 20:56; Admin Dose 0.4 MG; Start 12/29/16 at 21:00 Ceftriaxone Sodium (Rocephin) 50 ml @ 100 mls/hr Q24H IVPB Last administered on 01/04/17 11:47; Admin Dose 100 MLS/HR; Start 12/31/16 at 12:00 JM TINSLEY MD Jan 04, 2017 14:17
[2017-01-04] MEDS: TAMSULOSIN (SR) 0.4 MG CAP PO SCH (20:37)
[2017-01-04] MEDS: INSULIN GLARGINE [LANtus] 3 ML PEN SC SCH (20:50)
[2017-01-05] VITALS: BP 113/62; RESP 19
[2017-01-05] MEDS: ACCU-CHEK XX SCH (02:00)
[2017-01-05] MEDS: SOD CHLORIDE 0.9% 1,000 ML IV SCH (04:45)
[2017-01-05] MEDS: INSULIN ASPART [NOVOLOG] 3 ML PEN SC SCH ×4 (07:50→21:00)
[2017-01-05 08:10] VITALS: BP 113/56; RESP 18
[2017-01-05] MEDS: CHOLECALCIFEROL 2,000 UNIT CAP PO SCH (08:56)
[2017-01-05] MEDS: FAMOTIDINE 20 MG TAB PO SCH (08:56)
[2017-01-05] MEDS: ASPIRIN 81 MG TAB PO SCH (08:56)
[2017-01-05] MEDS: DUTASTERIDE 0.5 MG CAP PO SCH (08:56)
[2017-01-05] MEDS: BALSAM PERU/CASTOR OIL 60 GM TUBE TOP SCH ×2 (08:57→21:00)
[2017-01-05 09:39] LABS: BASOPHIL # 0.1 10^3/ul (0.0-0.1); BASOPHILS % 0.7 % (0.0-2.0); EOSINOPHILS # 0.7 10^3/ul (0.0-0.5); EOSINOPHILS % 8.5 % (0.0-7.0); HEMATOCRIT 33.2 % (42.0-52.0); HEMOGLOBIN 11.1 g/dl (14.0-18.0); LYMPHOCYTES % 24.4 % (15.0-51.0); MEAN CORPUSCULAR HEMOGLOBIN 30.2 pg (29.0-33.0); MEAN CORPUSCULAR HGB CONC 33.4 g/dl (32.0-37.0); MEAN CORPUSCULAR VOLUME 90.5 fl (82.0-101.0); MEAN PLATELET VOLUME 9.8 fl (7.4-10.4); MONOCYTE # 0.5 10^3/ul (0.3-0.9); NEUTROPHILS % 60.2 % (39.0-77.0); PLATELET COUNT 229 10^3/UL (140-415); RED BLOOD COUNT 3.67 10^6/ul (4.70-6.10); RED CELL DISTRIBUTION WIDTH 12.6 % (11.5-14.5); WHITE BLOOD COUNT 8.4 10^3/ul (4.8-10.8)
[2017-01-05 09:59] LABS: CALCIUM 8.4 mg/dl (8.4-10.2); CREATININE 1.42 mg/dl (0.61-1.24); MAGNESIUM 2.1 mg/dl (1.7-2.5); PHOSPHORUS 4.1 mg/dl (2.5-4.9); POTASSIUM 4.3 mmol/L (3.5-5.1)
--- NOTE | 2017-01-05 10:25 | PN ---
DATE: 01/05/2017 SUBJECTIVE: The patient is stable. No events overnight. No fevers, chills, nausea, vomiting. OBJECTIVE: VITAL SIGNS: Blood pressure is 130/56, temperature 98.6, pulse 61, respiration 18. HEENT: Head is normocephalic. NECK: Supple. HEART: Regular rate. LUNGS: Show diminished breath sounds at base. ABDOMEN: Soft, nontender to palpation without rebound or guarding. EXTREMITIES: Negative for clubbing, cyanosis, no edema. DERMATOLOGIC: No rashes. MUSCULOSKELETAL: No joint effusions. NEUROLOGIC: No change in exam. MEDICATIONS: The patient's medications have been reviewed. LABORATORY DATA: Currently pending. ASSESSMENT AND PLAN: 1. Nonoliguric acute kidney injury on top of chronic kidney disease with previous baseline creatini ne 1.2 and 1.3 mg/dL. Etiology of acute kidney injury was multifactorial. Renal function appears t o have stabilized. At this point will continue current treatment plan, supportive care, renally dos e all medicines. 2. Left hydroureteronephrosis. The patient is status post Saini catheter placement. Continue to m onitor. Consider repeat renal ultrasound in 1 to 2 weeks. Appreciate urology evaluation. 3. Anemia. Monitor hemoglobin and hematocrit levels. 4. Mineral bone disorder, monitor calcium and phosphorus levels. 5. Hypertension. Continue current blood pressure regimen. 6. Left acetabular fracture secondary to fall. Continue current medical management. Continue cons ervative therapy. 7. Diabetes. Continue current insulin regimen. 8. History of cerebrovascular accident. Dictated By: DOMINIC MUÑOZ/ANTNOI Conf#: [id number] DID#: [id number]
[2017-01-05] MEDS: DILTIAZEM (CD) 180 MG CAP PO SCH (10:56)
--- NOTE | 2017-01-05 11:10 | PDOCDIS ---
Discharge Instructions DIAGNOSIS Discharge Diagnosis 1. UTI- resolved 2. Acute left hip fracture s/p mechanical fall- stable 3. obstructive nephrolithiasis 4. DM, controlled 5. h/o CVA with residual weakness 6. 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 Left humeral fracture 8. HTN 9. BPH CONDITION Patient Condition: Good HOME CARE INSTRUCTIONS: Special Diet: carb control diet ACTIVITY: Activity Restrictions: No Weight Bearing (left lower extremity with bucks traction with 5 pounds) FOLLOW UP/APPOINTMENTS Follow-up Plan 1. You will need to be on bedrest for 6 weeks total (Until 02/06) with [place] traction of 5 pounds and Follow up with Dr. Vegas as outpatient for follow up Xrays of Left 2. Follow up with your Primary care physician in 1 week 3. Follow up with Nephrology in 1-2 week. 4. Continue all medications as prescribed 5. You will need a repeat Ultrasound of your kidneys in 1-2 weeks REFERRALS Other Referrals Alejandro Weldon DO Specialty: Nephrology/Internal Medicine Office Address [id number] [facility] [address] [place] [address] Office Yves Vegas MD Specialty: Orthopedic Surgery Office Address [id number] [facility] [address] [place] [id number] Office JM TINSLEY MD Jan 05, 2017 11:10
--- NOTE | 2017-01-05 11:20 | PN ---
Date/Time of Note Date/Time of Note DATE: 01/05/17 TIME: 11:20 Assessment/Plan VTE Prophylaxis VTE Prophylaxis Intervention: SCD's Lines/Catheters IV Catheter Type (from Nrsg): Peripheral IV Urinary Cath still in place: Yes Reason Cath still needed: terminal illness/intractable pain Assessment/Plan Assessment/Plan 1. UTI- resolved - remains afebrile and stable WBC - Completed course of antibiotics 2. Acute left hip fracture s/p mechanical fall- stable - Ortho on board and recommendations appreciated. Will need to be on bedrest for 6 weeks (02/06) and follow up with Dr. Vegas as outpatient for repeat imaging studies - CT scan of pelvis showed "comminuted and minimally displaced fracture involving the left anterior hong and acetabular columns there is also a mildly displaced fracture of the posterior wall and posterior column. There is involvement of the medial acetabular wall as well and articular surface involvement. Displacement is minimal. There are additional fractures involving the left anterior pubic ramus which is comminuted minimally displaced there is also fracture of the takeoff of the left superior pubic ramus near the acetabulum." - bucks traction @ 5 lbs - Pain control 3. obstructive nephrolithiasis -urology called, Dr. Liu, 85% chance 2mm stone will pass. Start flomax, continue hydration. -monitor Cr and pain, if worsens, may have to recall urology and urology will consult. -strain urine, broken up stones/sediments found overnight, sending to lab for analysis -repeat imaging with US in 2-3 weeks. 4. DM, controlled - hold PO medications - A1c 6.5 - ISS and accuchecks 5. h/o CVA with residual weakness - continue on aspirin 6. GABBI on CKD - Spoke with nephrology and believes patients new baseline may be 1.4. Will need to follow up as outpatient. - Nephrology consultation appreciated 7. Left humeral fracture - Left arm in sling and will need to be immobilized for 4 weeks - Ortho on board 8. HTN - Stable - continue home medications - holding lisinopril due to GABBI. BP remains within normal limits 9. BPH 10. Disposition - Patient medically stable for discharge to SNF on [place] traction at 5 lbs. Nonweight bearing LLE for 6 weeks total Subjective 24 Hr Interval Summary Free Text/Dictation patient doing well and has no new complaints. No acute overnight events. Exam/Review of Systems Vital Signs Vitals Vital Signs Date Time Temp Pulse Resp B/P Pulse Ox O2 Delivery O2 Flow Rate FiO2 01/05/17 08:10 98.6 61 18 113/56 94 01/05/17 08:00 Nasal Cannula 2.0 Intake and Output 01/04/17 01/04/17 01/05/17 14:59 22:59 06:59 Intake Total 50 ml 1080 ml 940 ml Output Total 400 ml 900 ml Balance 50 ml 680 ml 40 ml Exam General: Patient in no acute distress, laying in bed and answers questions Mentation: Patient is alert and oriented to self Head: Normocephalic atraumatic Eyes: EOMI, pupils reactive to light Neck: Supple, nontender, midline Respiratory: Clear to auscultation bilaterally, diminished at bases, no wheezing or rhonchi. Cardiovascular: regular rate, no obvious murmurs Gastrointestinal: non-tender to palpation, bowel sounds heard. Extremity- LLE in [place] traction with 5lb weight Results Result Diagram: 01/05/1790001/05/17 09 Results 24 hrs Laboratory Tests Test 01/04/17 11:45 01/04/17 17:33 01/04/17 20:38 01/05/17 02:39 Bedside Glucose 167 136 228 H 127 Test 01/05/17 08:14 01/05/17 09:01 Bedside Glucose 118 White Blood Count 8.4 Red Blood Count 3.67 L Hemoglobin 11.1 L Hematocrit 33.2 L Mean Corpuscular Volume 90.5 Mean Corpuscular Hemoglobin 30.2 Mean Corpuscular Hemoglobin Concent 33.4 Red Cell Distribution Width 12.6 Platelet Count 229 # Mean Platelet Volume 9.8 Neutrophils % 60.2 Lymphocytes % 24.4 Monocytes % 6.0 Eosinophils % 8.5 H Basophils % 0.7 Nucleated Red Blood Cells % 0.0 Neutrophils # 5.0 Lymphocytes # 2.0 Monocytes # 0.5 Eosinophils # 0.7 H Basophils # 0.1 Nucleated Red Blood Cells # 0.0 Sodium Level 138 Potassium Level 4.3 Chloride Level 104 Carbon Dioxide Level 26 Anion Gap 12 Blood Urea Nitrogen 37 H Creatinine 1.42 H Glucose Level 121 Calcium Level 8.4 Phosphorus Level 4.1 Magnesium Level 2.1 Albumin 3.0 L Medications Medications Current Medications Cholecalciferol (Vitamin D) 2,000 unit DAILY PO Last administered on 08:56; Admin Dose 2,000 UNIT; Start 12/27/16 at 09:00 Diltiazem HCl (Cardizem Cd) 180 mg DAILY PO Last administered on 01/05/17 10: 56; Admin Dose 180 MG; Start 12/27/16 at 09:00 Dutasteride (Avodart) 0.5 mg DAILY PO Last administered on 01/05/17 08:56; Admin Dose 0.5 MG; Start 12/27/16 at 09:00 Insulin Glargine (Lantus) 10 unit HS SC Last administered on 01/04/17 20:50; Admin Dose 10 UNIT; Start 12/26/16 at 21:00 Miscellaneous Information 1 ea NOTE XX ; Start 12/26/16 at 15:00 Glucose (Glutose) 15 gm Q15M PRN PO DECREASED GLUCOSE; Start 12/26/16 at 15:00 Glucose (Glutose) 22.5 gm Q15M PRN PO DECREASED GLUCOSE; Start 12/26/16 at 15: 00 Dextrose (D50w Syringe) 25 ml Q15M PRN IV DECREASED GLUCOSE; Start 12/26/16 at 15:00 Dextrose (D50w Syringe) 50 ml Q15M PRN IV DECREASED GLUCOSE; Start 12/26/16 at 15:00 Glucagon (Glucagen) 1 mg Q15M PRN IM DECREASED GLUCOSE; Start 12/26/16 at 15:00 Glucose (Glutose) 15 gm Q15M PRN BUCCAL DECREASED GLUCOSE; Start 12/26/16 at 15 :00 Ondansetron HCl (Zofran Inj) 4 mg Q6H PRN IV NAUSEA AND/OR VOMITING Last administered on 01/02/17 05:13; Admin Dose 4 MG; Start 12/26/16 at 15:00 Acetaminophen (Tylenol Tab) 650 mg Q6H PRN PO PAIN LEVEL 1-3 OR FEVER; Start 12/26/16 at 15:00 Acetaminophen/ Hydrocodone Bitart ([place] (5/325)) 1 tab Q6H PRN PO PAIN LEVEL 4 -6 Last administered on 01/04/17 05:47; Admin Dose 1 TAB; Start 12/26/16 at 15 :00 Morphine Sulfate (morphine) 2 mg Q4H PRN IV PAIN LEVEL 7-10 Last administered on 01/02/17 05:14; Admin Dose 2 MG; Start 12/26/16 at 15:00 Docusate Sodium (Colace) 100 mg Q12H PRN PO CONSTIPATION; Start 12/26/16 at 15: 00 Magnesium Hydroxide (Milk Of Mag) 30 ml DAILY PRN PO CONSTIPATION Last administered on 01/04/17 05:48; Admin Dose 30 ML; Start 12/26/16 at 15:00 Famotidine (Pepcid) 20 mg DAILY PO Last administered on 01/05/17 08:56; Admin Dose 20 MG; Start 12/26/16 at 16:00 Hydralazine HCl (Apresoline) 10 mg Q6H PRN IV SBP >160; Start 12/26/16 at 15:00 Diagnostic Test (Pha) (Accu-Chek) 1 ea 02 XX Last administered on 12/28/16 02: 44; Admin Dose 1 EA; Start 12/27/16 at 02:00 Polyethylene Glycol 17 gm 17 gm DAILY PRN PO CONSTIPATION; Start 12/28/16 at 10 :30 Sodium Chloride (NS) 1,000 ml @ 40 mls/hr Q24H IV Last administered on 05:47; Admin Dose 40 MLS/HR; Start 12/28/16 at 15:30 Aspirin (Aspirin) 81 mg DAILY PO Last administered on 01/05/17 08:56; Admin Dose 81 MG; Start 12/30/16 at 09:00 Tamsulosin HCl 0.4 mg 0.4 mg HS PO Last administered on 01/04/17 20:37; Admin Dose 0.4 MG; Start 12/29/16 at 21:00 Ceftriaxone Sodium (Rocephin) 50 ml @ 100 mls/hr Q24H IVPB Last administered on 01/04/17 11:47; Admin Dose 100 MLS/HR; Start 12/31/16 at 12:00 JM TINSLEY MD Jan 05, 2017 11:20
[2017-01-05] MEDS: CEFTRIAXONE 1 GM/50 ML (PMX) 50 ML IVPB SCH (11:30)
[2017-01-05] MEDS: HYDROCODONE/APAP (5/325) TAB PO PRN (12:57)
[2017-01-05 15:33] VITALS: BP 128/71; RESP 20
[2017-01-05 20:01] VITALS: BP 124/65; RESP 22
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
[2017-01-05] MEDS: TAMSULOSIN (SR) 0.4 MG CAP PO SCH (21:18)
[2017-01-05] MEDS: INSULIN GLARGINE [LANtus] 3 ML PEN SC SCH (21:21)
== END 2017-01-06 00:10 | DRG 536 ==
LOC: E/R 11:48 → MS4 13:52 → MS1 01-04 21:00
PROVIDERS: ADMIT Internal Medicine; ATTEND Internal Medicine
DX: S32.412A Displaced fracture of anterior wall of left acetabulum, initial encounter for closed fracture (principal); N17.9 Acute kidney failure, unspecified; S32.512A Fracture of superior rim of left pubis, initial encounter for closed fracture; F03.90 Unspecified dementia, unspecified severity, without behavioral disturbance, psychotic disturbance, mood disturbance, and anxiety; I50.9 Heart failure, unspecified; I13.0 Hypertensive heart and chronic kidney disease with heart failure and stage 1 through stage 4 chronic kidney disease, or unspecified chronic kidney disease; D64.9 Anemia, unspecified; S42.212A Unspecified displaced fracture of surgical neck of left humerus, initial encounter for closed fracture; S42.302A Unspecified fracture of shaft of humerus, left arm, initial encounter for closed fracture; S32.592A Other specified fracture of left pubis, initial encounter for closed fracture; I69.954 Hemiplegia and hemiparesis following unspecified cerebrovascular disease affecting left non-dominant side; N13.2 Hydronephrosis with renal and ureteral calculous obstruction; N39.0 Urinary tract infection, site not specified; S42.252A Displaced fracture of greater tuberosity of left humerus, initial encounter for closed fracture; E11.22 Type 2 diabetes mellitus with diabetic chronic kidney disease; S32.422A Displaced fracture of posterior wall of left acetabulum, initial encounter for closed fracture; S32.442A Displaced fracture of posterior column [ilioischial] of left acetabulum, initial encounter for closed fracture; S32.432A Displaced fracture of anterior column [iliopubic] of left acetabulum, initial encounter for closed fracture; S32.472A Displaced fracture of medial wall of left acetabulum, initial encounter for closed fracture; N18.9 Chronic kidney disease, unspecified; N40.0 Benign prostatic hyperplasia without lower urinary tract symptoms; Z66 Do not resuscitate; H91.8X9 Other specified hearing loss, unspecified ear; W19.XXXA Unspecified fall, initial encounter; Y92.009 Unspecified place in unspecified non-institutional (private) residence as the place of occurrence of the external cause; I25.10 Atherosclerotic heart disease of native coronary artery without angina pectoris; Z95.0 Presence of cardiac pacemaker; M89.9 Disorder of bone, unspecified; E83.9 Disorder of mineral metabolism, unspecified
CPT/HCPCS: 70450; 71010; 72170; 72192; 73030; 73510; 73562; 74176; 76775; 80048; 80069; 81001; 81003; 82043; 82962; 83036; 83735; 84100; 84155; 84300; 84484; 85025; 85610; 85730; 87040; 87086; 93005; 96374; 96375; J0696; J1644; J1815; J2270; J2405; J7030; J7040